=== PATIENT | female | born 1970 | race Caucasian/White ===

== ENCOUNTER → 2017-10-25 14:45 | Outpatient (CLI) | payer BC, SELFPAY ==
[2017-10-25 16:38] LABS: Calcium 9.7 mg/dL (8.4-10.2); Estimated Glomerular Filt Rate 58.9 mL/min (>60); Glucose 129 mg/dL (70-100); HEMOLYSIS < 15 (0-50); Potassium 3.8 mmol/L (3.4-5.1); Sodium 140 mmol/L (137-145)
== END ==
PROVIDERS: Family Provider Family Medicine; PCP Family Medicine; Visit Provider Family Medicine
DX: I10 Essential (primary) hypertension (principal)
CPT/HCPCS: 36415; 80048

== ENCOUNTER → 2019-01-10 07:37 | Outpatient (CLI) | payer BC, SELFPAY ==
[2019-01-10 08:37] LABS: Add Manual Diff / Slide Review NO; Basophils Absolute Auto 100 /uL (0-100); Eosinophils Absolute Auto 300 /uL (0-450); Eosinophils Percent Auto 3.9 % (2-4); Hematocrit 43.7 % (36-46); Hemoglobin 15.1 g/dL (12.0-16.0); Lymphocytes Absolute Auto 3200 /uL (1100-4500); Lymphocytes Percent Auto 37.9 % (25-40); Mean Corpuscular HGB Conc 34.6 % (30-36); Mean Corpuscular Hemoglobin 32.5 PG (26-34); Monocytes Absolute Auto 500 /uL (0-900); Monocytes Percent Auto 6.4 % (3-14); Neutrophils Absolute Auto 4300 /uL (1500-7000); Neutrophils Percent Auto 50.8 % (50-75); Platelet Count 376 X10^3/uL (150-400); Red Blood Cell Count 4.65 X10^6/uL (4.0-5.2); Red Cell Distribution Width 12.9 % (11.6-14.8); White Blood Cell Count 8.5 X10^3/uL (4.5-11.0)
[2019-01-10 08:52] LABS: Alanine Aminotransferase 24 IU/L (9-52); Albumin 4.4 g/dL (3.5-5.0); Albumin Globulin Ratio 1.6 (1.0-2.8); Alkaline Phosphatase 69 U/L (38-126); Aspartate Aminotransferase 20 IU/L (14-36); Bilirubin Total 0.4 mg/dL (0.2-1.3); Blood Urea Nitrogen 21 mg/dL (7-17); Calcium 9.7 mg/dL (8.4-10.2); Carbon Dioxide 29 mmol/L (22-32); Chloride 100 mmol/L (98-107); Cholesterol 257 mg/dL (140-199); Estimated Glomerular Filt Rate > 60.0 mL/min (>60); Globulin 2.8 g/dL (1.7-4.1); Glucose 98 mg/dL (70-100); HDL Cholesterol 51 mg/dL (40-60); HEMOLYSIS < 15 (0-50); LDL Cholesterol Calculated 177 mg/dL (<100); Potassium 4.2 mmol/L (3.4-5.1); Sodium 139 mmol/L (137-145); Total Protein 7.2 g/dL (6.3-8.2); Triglycerides 147 mg/dL (35-150)
[2019-01-10 09:07] LABS: Creatinine Urine Random 37.7 mg/dL
[2019-01-10 09:13] LABS: Microalbumi Creatinin Ratio Ur 15.9 ug/mg CR (<30); Microalbumin Urine Random < 0.6 mg/dL (0-1.6)
[2019-01-10 09:22] LABS: TSH w/ Reflex to FT4 0.81 uIU/mL (0.47-4.68)
== END ==
PROVIDERS: PCP Family Medicine; Visit Provider Family Medicine
DX: I10 Essential (primary) hypertension (principal); K85.20 Alcohol induced acute pancreatitis without necrosis or infection; D75.89 Other specified diseases of blood and blood-forming organs
CPT/HCPCS: 36415; 80053; 80061; 82043; 82570; 84443; 85025

== ENCOUNTER → 2019-02-14 07:42 | Outpatient (CLI) | payer BC, SELFPAY ==
[2019-02-14 09:01] LABS: Prolactin 6.4 ng/mL (3.0-18.6)
[2019-02-14 09:03] LABS: Progesterone, Total 0.81 ng/mL
[2019-02-16 17:42] LABS: Sex Hormone Binding Globulin 61 nmol/L (17-124)
[2019-02-20 21:01] LABS: Estradiol 4 pg/mL
== END ==
PROVIDERS: PCP Family Medicine; Visit Provider Family Medicine
DX: R68.82 Decreased libido (principal)
CPT/HCPCS: 36415; 82672; 84144; 84146; 84270; 84403

== ENCOUNTER 2019-02-27 12:36 | Emergency (ER) | payer BC, SELFPAY ==
[2019-02-27 12:52] VITALS: BP 147/101; PULSE 111; RESP 17; TEMP 37.2; O2SAT 97; BMI 29.2
--- NOTE | 2019-02-27 12:58 | DI.RAD.S_ITS ---
PROCEDURE: XR HIP W PEL IF DONE RT 2V INDICATIONS: right hip pain TECHNIQUE: AP pelvis with lateral view(s) of the right hip(s). COMPARISON: None. FINDINGS: Bones: Remote laminectomy and fusion at L5-S1. No fractures or dislocations. Pelvic ring appears intact. No suspicious bony lesions. Mild degenerative change of the right hip. Soft tissues: The visualized bowel gas pattern is normal. No suspicious soft tissue calcifications. IMPRESSION: Mild right hip degenerative change. Dictated by: Kaleb Fabian M.D. on 02/27/2019 at 13:33 Approved by: Kaleb Fabian M.D. on 02/27/2019 at 13:33
[2019-02-27] MEDS: KETOROLAC 60 MG/2 ML VIAL IM (13:28)
--- NOTE | 2019-02-27 14:15 | ED_ITS ---
HPI - Extremity Problem <MONTANA King - Last Filed: 02/27/19 14:24> General Chief complaint: Extremity Problem,Nontraumatic Stated complaint: right hip pain Time Seen by Provider: 02/27/19 12:49 Source: patient Mode of arrival: Wheelchair Limitations: no limitations History of Present Illness HPI Narrative: The patient is a 48-year-old female current smoker with history of asthma who presents with a chief complaint of right hip pain for the past 10 days. She denies any falls or trauma. She states is increasingly painful when she was walking for long time and moving and rotating her hip. She has tried marijuana in 200 mg of ibuprofen for the pain without relief. She denies any fevers nausea vomiting or diarrhea. She does have history of arthritis, but no known arthritis in her hip. She denies any bruises or rashes. She states that her hip hurts at the top of her leg in the front Related Data Home Medications Medication Instructions Recorded Confirmed albuterol sulfate [Proventil HFA] 2 inhalation INHALATION Q4-6H PRN 02/27/19 02/27/19 amlodipine 10 mg PO DAILY 02/27/19 02/27/19 bupropion HCl 150 mg PO BID 02/27/19 02/27/19 montelukast [Singulair] 10 mg PO DAILY 02/27/19 02/27/19 Previous Rx's Medication Instructions Recorded budesonide 1 mg/2 mL suspension 1 mg INHALATION BID #60 inhalation 01/02/19 for nebulization ipratropium-albuterol 0.5 mg-3 3 ml INHALATION Q8H #180 ml 01/02/19 mg(2.5 mg base)/3 mL nebulization soln lisinopril 20 1 tab PO DAILY #90 tab 01/02/19 mg-hydrochlorothiazide 12.5 mg tablet ketorolac 10 mg PO TID PRN #20 tab 02/27/19 Allergies Allergy/AdvReac Type Severity Reaction Status Date / Time propranolol Allergy Severe LUNG Verified 02/27/19 12:52 REACTION/ HOSPITALIZE PER PATIENT Penicillins Allergy Mild UNKNOWN Verified 02/27/19 12:52 pneumococcal vaccine Allergy Mild UNABLE TO Verified 02/27/19 12:52 MOVE ARM FOR 24 HOURS Review of Systems <MONTANA King - Last Filed: 02/27/19 14:24> Review of Systems Narrative: GENERAL: Denies chills, fatigue, malaise, fever, sweats. HEENT: Denies sinus pain, ear pain, sore throat, difficulty swallowing, dizziness. RESPIRATORY: Denies dyspnea, cough, wheezing, hemoptysis, sputum. CARDIOVASCULAR: Denies chest pain, palpitations, orthopnea, edema, GASTROINTESTINAL: Denies nausea, vomiting, abdominal pain, diarrhea, constipation, melena. : Denies dysuria, frequency, incontinence, hematuria, urinary retention. MUSCULOSKELETAL: See HPI SKIN: Denies rash, skin lesions, or other NEUROLOGIC: Denies weakness, headache, numbness, change in speech, confusion, seizures, incoordination. PSYCHIATRIC: No concerning psychosocial issues. 12 point review of systems is negative except for those stated above PFSH <MONTANA King - Last Filed: 02/27/19 14:24> Medical History Alcohol abuse (Chronic) Alcoholic hepatitis (Inactive) Alcoholic pancreatitis (Inactive) Chronic headaches (Chronic 2006) Head injury, unspecified (Inactive) Keratin cyst (Acute) Postconcussive syndrome (Chronic 2006) Right ankle sprain (Inactive) Talipes cavus (Inactive) Surgical History Status post hysterectomy (Resolved 2003) Family History Mother Heart disease Suicide Brother Suicide Father Parkinson's disease Social History Smoking Status: Current every day smoker Family History Mother Heart disease Suicide Brother Suicide Father Parkinson's disease Social History Smoking Status: Current every day smoker Exam <MONTANA King - Last Filed: 02/27/19 14:24> Narrative Exam Narrative: GENERAL: This is a well-nourished, well-developed patient no acute distress lying on stretcher HEAD: Atraumatic. Normocephalic. No temporal or scalp tenderness. EYES: Pupils equal round and reactive. Extraocular motions intact. No scleral icterus. No injection or drainage. ENT: Nose without bleeding, purulent drainage or septal hematoma. Throat without erythema, tonsillar hypertrophy or exudate. Uvula midline. Airway patent. NECK: Trachea midline. No JVD or lymphadenopathy. Supple, nontender, no meningeal signs. CARDIOVASCULAR: Regular rate and rhythm without murmurs, gallops, or rubs. RESPIRATORY: Breath sounds equal bilaterally. Diffuse expiratory wheezes bilaterally to auscultation. No rales or rhonchi. GASTROINTESTINAL: Abdomen soft, non-tender, nondistended. No hepato- splenomegaly, or palpable masses. No guarding. Active bowel sounds all 4 quadrants. EXTREMITIES: General pain to palpation right hip. Decreased range of motion rotation. Positive pedal pulses right foot. BACK: Nontender without deformity or crepitance. No flank tenderness. NEURO: AOx3. SKIN: No rash or erythema ecchymosis or rash noted on right hip. Initial Vital Signs Initial Vital Signs: Vital Signs Temperature 98.9 F 02/27/19 12:52 Pulse Rate 111 H 02/27/19 12:52 Respiratory Rate 17 02/27/19 12:52 Blood Pressure 147/101 H 02/27/19 12:52 Pulse Oximetry 97 02/27/19 12:52 <Rayna Moon DO - Last Filed: 03/02/19 07:10> Initial Vital Signs Initial Vital Signs: Vital Signs Temperature 98.9 F 02/27/19 12:52 Pulse Rate 111 H 02/27/19 12:52 Respiratory Rate 17 02/27/19 12:52 Blood Pressure 147/101 H 02/27/19 12:52 Pulse Oximetry 97 02/27/19 12:52 Course <MONTANA King - Last Filed: 02/27/19 14:24> Orders Ordered: Discontinued Medications Ketorolac Tromethamine (Toradol) 60 mg IM NOW ONE Stop: 02/27/19 13:03 Last Admin: 02/27/19 13:28 Dose: 60 mg Documented by: SCANAPO Vital Signs Vital signs: Vital Signs - 8 hr 02/27/19 12:52 Temperature 98.9 F Pulse Rate 111 H Respiratory Rate 17 Blood Pressure 147/101 H Pulse Oximetry 97 <Rayna Moon DO - Last Filed: 03/02/19 07:10> Orders Ordered: Discontinued Medications Ketorolac Tromethamine (Toradol) 60 mg IM NOW ONE Stop: 02/27/19 13:03 Last Admin: 02/27/19 13:28 Dose: 60 mg Documented by: SCANAPO Vital Signs Vital signs: Vital Signs - 8 hr 02/27/19 12:52 Temperature 98.9 F Pulse Rate 111 H Respiratory Rate 17 Blood Pressure 147/101 H Pulse Oximetry 97 [facility] - Extremity (Nontraumatic) <MONTANA King - Last Filed: 02/27/19 14:24> Imaging Data Hip x-ray: Radiologist's impression: [address] [address] XRay Report Signed Patient: Kena Patino [facility]#: [id number] : 1970Acct:[id number] Age/Sex: 48 / FDate of Service: 02/27/19 Loc: ED Accession Number: [id number] Procedure: XR hip w pel if done RT 2V Ordering Provider: Eliza Griffiths PROCEDURE: XR HIP W PEL IF DONE RT 2V INDICATIONS: right hip pain TECHNIQUE: AP pelvis with lateral view(s) of the right hip(s). COMPARISON: None. FINDINGS: Bones: Remote laminectomy and fusion at L5-S1. No fractures or dislocations. Pelvic ring appears intact. No suspicious bony lesions. Mild degenerative change of the right hip. Soft tissues: The visualized bowel gas pattern is normal. No suspicious soft tissue calcifications. IMPRESSION: Mild right hip degenerative change. Dictated by: Kaleb Fabian M.D. on 02/27/2019 at 13:33 Approved by: Kaleb Fabian M.D. on 02/27/2019 at 13:33 [facility] Narrative Medical decision making narrative: The patient is a 48-year-old female who presents with a chief complaint of right hip pain for the past 10 days without trauma. Who she has no acute findings on exam. She has been using marijuana 200 mg of ibuprofen at home for pain control. She was given an injection of Toradol in the ER for pain. She is neurovascularly intact. X-ray shows some degenerative changes, which correlates with her history of pain with increased activity. Discussed at length ice, rest, NSAIDs and Tylenol as needed and able. Discussed not combining Toradol with any other NSAIDs such as Aleve or Motrin. Encouraged PCP follow-up as well as come back to the ER for any acute concerns such as chest pain or shortness of breath Discharge Plan Departure Patient Disposition: Home Clinical Impression: Acute hip pain Qualifiers: Laterality: right Qualified Code(s): M25.551 - Pain in right hip Discharge Date/Time: 02/27/19 14:37 Instructions: Help for Hip Pain, DI for Hip Pain Activity Restrictions/Additional Instructions: Your hip x-ray shows some degenerative changes. Please use the prescription of Toradol. Please also use Tylenol. Do not combine the Toradol with any other NSAIDs such as Aleve or Motrin Please use ice and rest Please follow up with primary care provider. Please come back to the emergency department for any acute concerns such as chest pain, shortness of breath, concern of heart attack or stroke. Prescriptions: New ketorolac 10 mg tablet 10 mg PO TID PRN (Reason: pain) Qty: 20 RF: 0 No Action lisinopril-hydrochlorothiazide 20-12.5 mg tablet 1 tab PO DAILY Qty: 90 RF: 3 budesonide 1 mg/2 mL suspension for nebulization 1 mg INHALATION BID Qty: 60 RF: 5 ipratropium-albuterol 0.5 mg-3 mg(2.5 mg base)/3 mL solution for nebulization 3 ml INHALATION Q8H Qty: 180 RF: 5 amlodipine 10 mg tablet 10 mg PO DAILY RF: 0 montelukast [Singulair] 10 mg tablet 10 mg PO DAILY RF: 0 albuterol sulfate [Proventil HFA] 90 mcg/actuation HFA aerosol inhaler 2 inhalation Inhalation Q4-6H PRN (Reason: Shortness Of Breath) RF: 0 bupropion HCl 75 mg tablet 150 mg PO BID RF: 0 Referrals: Yennifer La DO [Primary Care Provider] -
[2019-02-27 14:37] VITALS: BP 111/82; PULSE 95; RESP 16; O2SAT 97
== END 2019-02-27 14:37 | disposition home or self-care (01) ==
PROVIDERS: Emergency Provider Nurse Practitioner Family; PCP Family Medicine
DX: M25.551 Pain in right hip (principal)
CPT/HCPCS: 73502; 96372; 99282; 99283; J1885

== ENCOUNTER → 2019-03-08 08:26 | Outpatient (CLI) | payer BC, SELFPAY ==
--- NOTE | 2019-03-08 08:28 | DI.MRI.S_ITS ---
PROCEDURE: MR HIP RT WO CON INDICATIONS: right groin pain, unable to walk TECHNIQUE: Noncontrast coronal T1 spin echo and STIR through the bony pelvis. Coronal and axial T2 fast spin echo with fat saturation, sagittal T1 spin echo, and oblique axial T2 fast spin echo with fat saturation through the hip. COMPARISON: [facility], CR, XR HIP W PEL IF DONE RT 2V, 02/27/2019, 12:58. FINDINGS: Image quality: Suboptimal due to lower lumbar spine hardware artifact. Bones and joints: No evidence of occult fracture. Mild right hip joint effusion. Tendons and ligaments: The gluteus medius and minimus tendons appear intact, without associated muscle atrophy. The nearby proximal iliotibial band also appears intact. The iliopsoas tendon appears intact, without adjacent bursal fluid collections or evidence for impingement syndrome. Mild hamstring origin thickening and intrasubstance signal change in keeping with low-grade tendinopathy, age unknown. The straight and reflected heads of the rectus femoris muscle origin appear intact, as well as the conjoint tendon. The ligamentum teres appears intact where visualized. Labrum and cartilage: Full-thickness signal change involving the base of the anterosuperior labrum, for example image 17 series 5 in keeping with labral tear. The alpha angle of the femur is within normal limits at less than 55 degrees. Soft tissues: Visualized muscles demonstrate normal bulk and internal signal. Quadratus femoris muscle demonstrates no internal edema to suggest ischiofemoral impingement. The proximal sciatic neurovascular bundle appears normal adjacent to the hamstring tendons. No free pelvic fluid. Bladder wall thickness is normal. Genitourinary structures and bowel loops appear normal where visualized. Colonic diverticulosis incidentally noted IMPRESSION: No evidence of occult fracture identified. Anterosuperior labral tear. Low-grade hamstring origin tendinopathy. Mild right hip joint effusion Dictated by: Allen Gan M.D. on 03/08/2019 at 9:56 Approved by: Allen Gan M.D. on 03/08/2019 at 10:13
== END ==
PROVIDERS: PCP Family Medicine; Visit Provider Family Medicine
DX: M25.559 Pain in unspecified hip (principal); S73.191A Other sprain of right hip, initial encounter; R10.30 Lower abdominal pain, unspecified; M25.451 Effusion, right hip; K57.90 Diverticulosis of intestine, part unspecified, without perforation or abscess without bleeding; R26.2 Difficulty in walking, not elsewhere classified
CPT/HCPCS: 73721

== ENCOUNTER 2022-04-06 07:19 | Emergency (ER) | payer OTHER, SELFPAY ==
[2022-04-06 08:00] VITALS: BP 179/110; PULSE 108; RESP 17; TEMP 36.9; O2SAT 97; BMI 28.8
--- NOTE | 2022-04-06 08:14 | DI.RAD.S_ITS ---
PROCEDURE: XR HIP W PEL IF DONE LT 2V INDICATIONS: fall monday, cant bear weight TECHNIQUE: AP pelvis with lateral view(s) of the left hip(s). COMPARISON: None. FINDINGS: Bones: No fractures or dislocations. Mild symmetric appearing bilateral hip joint osteoarthritic changes are seen with joint space narrowing and subchondral sclerosis. No evidence of avascular necrosis of femoral head. Pelvic ring appears intact. No suspicious bony lesions. Post fusion changes are seen in visualized lower lumbar spine. Soft tissues: The visualized bowel gas pattern is normal. No suspicious soft tissue calcifications. IMPRESSION: No acute left hip fracture or dislocation. Bilateral hip joint osteoarthritis. No evidence of avascular necrosis. Dictated by: Wallace Gomez M.D. on 04/06/2022 at 8:55 Approved by: Wallace Gomez M.D. on 04/06/2022 at 8:56
--- NOTE | 2022-04-06 09:18 | ED_ITS ---
HPI - Extremity Injury (Lower) General Chief Complaint: Extremity Injury, Lower Stated Complaint: left hip pain Time Seen by Provider: 04/06/22 08:51 Source: patient Mode of arrival: Ambulatory Limitations: no limitations History of Present Illness HPI Narrative: Patient presents with severe left groin pain. She fell at home 2 days ago walking up steps. She fell forward onto her knees. There was no head, neck, back or torso injury. She has increased left groin pain since the fall. She arrives on crutches. She is ambulatory with crutches, there is no numbness or weakness to the left leg. There is no malrotation to the left leg. She has a prior history of right hip labrum tear that responded to a cortisone injection. She says the pain feels about the same. Pain is on the right inner leg. She is no back pain. She is no incontinence. She is no lower extremity numbness or weakness. Related Data Previous Rx's Medication Instructions Recorded ipratropium 0.5 mg-albuterol 3 mg 3 ml inhalation Q6H PRN shortness 08/02/21 (2.5 mg base)/3 mL nebulization of breath #360 mL soln lisinopril 20 1 tab PO DAILY #90 tabs 08/17/21 mg-hydrochlorothiazide 12.5 mg tablet budesonide 1 mg/2 mL suspension 1 mg (2 mL) inhalation BID #120 08/20/21 for nebulization inhalations azithromycin 250 mg tablet See Rx Instructions PO .COMPLEX #6 11/15/21 tabs prednisone 20 mg tablet 20 mg PO DAILY as needed for 11/15/21 asthma flare #7 tabs albuterol sulfate 90 mcg/actuation See Rx Instructions .Route 12/13/21 aerosol inhaler .COMPLEX #17 grams amlodipine 10 mg tablet 10 mg PO DAILY #90 tabs 03/01/22 methocarbamol 750 mg tablet 750 mg PO TID PRN back spasms #20 03/01/22 tabs montelukast 10 mg tablet 10 mg PO DAILY #90 tabs 03/01/22 hydrocodone 5 mg-acetaminophen 325 1 tab PO Q4-6H PRN pain #14 tabs 04/06/22 mg tablet methocarbamol 750 mg tablet 750 mg PO Q6H PRN spasms #40 tabs 04/06/22 Allergies Allergy/AdvReac Type Severity Reaction Status Date / Time propranolol Allergy Severe LUNG Verified 03/01/22 08:09 REACTION/ HOSPITALIZE PER PATIENT Penicillins Allergy Mild UNKNOWN Verified 03/01/22 08:09 pneumococcal vaccine Allergy Mild UNABLE TO Verified 03/01/22 08:09 MOVE ARM FOR 24 HOURS Review of Systems Review of Systems ROS Unobtainable: All systems reviewed & are unremarkable except as noted in HPI and below Patient History Medical History (Updated 04/06/22 @ 09:26 by Palomo Toro MD) Alcohol abuse Alcoholic hepatitis Alcoholic pancreatitis Chronic headaches (2006) Head injury, unspecified Keratin cyst Postconcussive syndrome (2006) Right ankle sprain Talipes cavus Surgical History Status post hysterectomy (2003) Family History Mother Heart disease Suicide Brother Suicide Father Parkinson's disease Social History Smoking Status: Current every day smoker quit status: has quit before Smoking Status: Current every day smoker alcohol intake frequency: a few times a week Substance Use Type: does not use Exam Initial Vital Signs Initial Vital Signs: Vital Signs Temperature 98.5 F 04/06/22 08:00 Pulse Rate 108 H 04/06/22 08:00 Respiratory Rate 17 04/06/22 08:00 Blood Pressure 179/110 H 04/06/22 08:00 Pulse Oximetry 97 04/06/22 08:00 Oxygen Delivery Method 04/06/22 08:00 Const General: cooperative, healthy appearing and other (Uncomfortable with motion.) Nutritional Appearance: average body habitus [facility] Head: normal to inspection, normocephalic and atraumatic GI Inspection: normal to inspection Palpation: soft and No tender Back/Spine/Pelvis Back: normal to inspection and No back tenderness Sacroiliac Joints: nontender Skin General: no rashes or lesions noted Neuro General: patient alert, patient awake, patient oriented x3, no focal motor deficits and other (No lower extremity sensory deficits.) Extrem Other: Tenderness in the left inner groin. Minimal discomfort over the femoral head. No palpable deformity or malrotation. Decreased range of motion to to right inner groin pain. Tenderness, but no palpable deformity at the site. Left knee, calf and ankle/foot are atraumatic/nontender. Psych Appearance: grossly normal Course Course Course Narrative: Left hip x-ray reveals no bony injury. Patient is given Toradol IM. She will be discharged on ibuprofen, hydrocodone, and Robaxin. Physical therapy is recommended. Orders Ordered: ED Orders 04/06/22 08:14 XR hip w pel if done LT 2V Stat Vital Signs Vital signs: Vital Signs - 8 hr 04/06/22 08:00 Temperature 98.5 F Pulse Rate 108 H Respiratory Rate 17 Blood Pressure 179/110 H Pulse Oximetry 97 Oxygen Delivery Method Room Air MDM - Extremity Injury (Lower) Imaging Data Left hip x-ray:: Radiologist's Impression: No acute bony injury Discharge Plan Departure Patient Disposition: Home Clinical Impression: Strain of left groin Instructions: Groin Strain Activity Restrictions/Additional Instructions: Advil 2 tablets every 6 hours as needed for pain. Robaxin every 6 hours for muscle spasm. Take the Advil and Robaxin together. Oxycodone every 4 hours for added pain control. Contact your new provider. I would suggest physical therapy. Prescriptions: New hydrocodone-acetaminophen 5-325 mg tablet 1 tab PO Q4-6H PRN (Reason: pain) Qty: 14 0RF methocarbamol 750 mg tablet 750 mg PO Q6H PRN (Reason: spasms) Qty: 40 0RF No Action methocarbamol 750 mg tablet 750 mg PO TID PRN (Reason: back spasms) Qty: 20 0RF ipratropium-albuterol 0.5 mg-3 mg(2.5 mg base)/3 mL solution for nebulization 3 ml INHALATION Q6H PRN (Reason: shortness of breath) Qty: 360 5RF lisinopril-hydrochlorothiazide 20-12.5 mg tablet 1 tab PO DAILY Qty: 90 3RF budesonide 1 mg/2 mL suspension for nebulization 1 mg INHALATION BID Qty: 120 5RF Hold Instructions: using budesonide/formoterol albuterol sulfate 90 mcg/actuation HFA aerosol inhaler See Rx Instructions .ROUTE .COMPLEX Qty: 17 3RF Dose Instruction: inhale 2 puffs by mouth and INTO THE LUNGS every 4 to 6 hours if needed for shortness of breath Rx Instructions: inhale 2 puffs by mouth and INTO THE LUNGS every 4 to 6 hours if needed for shortness of breath montelukast 10 mg tablet 10 mg PO DAILY Qty: 90 0RF amlodipine 10 mg tablet 10 mg PO DAILY Qty: 90 0RF prednisone 20 mg tablet 20 mg PO DAILY Qty: 7 0RF azithromycin 250 mg tablet See Rx Instructions PO .COMPLEX Qty: 6 0RF Rx Instructions: For 250 mg dose pack: take 500 mg today (day 1), then 250 mg for 4 days (days 2-5) PO Referrals: Yennifer La DO [Primary Care Provider] - Stand Alone Forms: Work Release Note
[2022-04-06] MEDS: KETOROLAC 30 MG/ML VIAL IM (09:36)
[2022-04-06 09:37] VITALS: BP 198/100; PULSE 85; RESP 18; O2SAT 98
== END 2022-04-06 09:39 | disposition home or self-care (01) ==
PROVIDERS: Emergency Provider Emergency Medicine; PCP Family Medicine
DX: S39.011A Strain of muscle, fascia and tendon of abdomen, initial encounter (principal); W10.9XXA Fall (on) (from) unspecified stairs and steps, initial encounter
CPT/HCPCS: 73502; 96372; 99283; J1885

== ENCOUNTER → 2022-10-05 11:56 | Outpatient (CLI) | payer OTHER, SELFPAY ==
--- NOTE | 2022-10-05 11:59 | DI.RAD.S_ITS ---
PROCEDURE: XR CERVICAL SPINE 4V OR 5V INDICATIONS: NECK PAIN/LEFT ARM PAIN TECHNIQUE: 5 views of the cervical spine were acquired. COMPARISON: None. FINDINGS: Bones: No fractures or dislocations to the T1 level. No suspicious bony lesions. There is reversal the normal cervical lordosis. Normal craniovertebral relationships. Disc space narrowing hypertrophic facet joints in the mid cervical spine present. Bilateral moderate foraminal stenosis present at C4-5 and C5-6. Soft tissues: Prevertebral soft tissues are normal in thickness. IMPRESSION: Degenerative disc disease and arthropathy results in moderate bilateral foraminal stenosis in the mid cervical spine Approved by: Abdulaziz Leigh M.D. on 10/05/2022 at 17:35
== END ==
PROVIDERS: PCP Family Medicine; Referring Provider Anesthesiology; Visit Provider Anesthesiology
DX: M47.812 Spondylosis without myelopathy or radiculopathy, cervical region (principal); M50.30 Other cervical disc degeneration, unspecified cervical region; M48.02 Spinal stenosis, cervical region; M79.602 Pain in left arm
CPT/HCPCS: 72050

== ENCOUNTER → 2022-11-03 11:59 | Outpatient (CLI) | payer OTHER, SELFPAY ==
--- NOTE | 2022-11-03 12:01 | DI.MRI.S_ITS ---
PROCEDURE: MR CERVICAL SPINE WO CON INDICATIONS: Left cervical radiculopathy TECHNIQUE: Noncontrast sagittal T1 spin echo and T2 fast spin echo, sagittal STIR, foraminal oblique sagittal T2 fast spin echo, and axial gradient echo or T2 fast spin echo through the cervical spine. COMPARISON: None. FINDINGS: Image quality: Excellent. Alignment and Curvature: Mild straightening the normal cervical lordosis. Craniovertebral relationships normal. Bone Marrow: Marrow demonstrates normal overall signal. Spinal Cord: Visualized spinal cord has normal size and signal. No cerebellar tonsillar herniation. Paraspinous Soft Tissues: No paravertebral masses. Prevertebral soft tissues are normal in thickness. C2-C3: Normal appearance. C3-C4: Disc space is preserved. Hypertrophic facet joints. Mild central stenosis. No foraminal stenosis. C4-C5: Disc space narrowing posterior disc osteophyte complex and hypertrophic uncovertebral joints. Mild to moderate central stenosis. Moderate to severe right and moderate left foraminal stenosis C5-C6: Disc space narrowing and posterior disc osteophyte complex associated with hypertrophic uncovertebral joints results in moderate central stenosis with flattening the ventral surface of the cord. Severe left and moderate right foraminal stenosis. C6-C7: Disc space narrowing posterior disc osteophyte complex results in mild central stenosis. Hypertrophic uncovertebral joints present. Moderate left and severe right foraminal stenosis. C7-T1: Normal appearance. IMPRESSION: Multilevel degenerative disc disease and arthropathy results in varying degrees of central and foraminal stenosis including moderate central stenosis and severe left foraminal stenosis at C5-6 Approved by: Abdulaziz Leigh M.D. on 11/03/2022 at 20:18
== END ==
PROVIDERS: PCP Family Medicine; Referring Provider Anesthesiology; Visit Provider Anesthesiology
DX: M54.12 Radiculopathy, cervical region (principal); M79.602 Pain in left arm; M48.02 Spinal stenosis, cervical region; M50.321 Other cervical disc degeneration at C4-C5 level; M47.812 Spondylosis without myelopathy or radiculopathy, cervical region
CPT/HCPCS: 72141

== ENCOUNTER → 2023-03-24 10:02 | Outpatient (CLI) | payer OTHER, SELFPAY ==
[2023-03-24 10:37] LABS: Add Manual Diff / Slide Review NO; Basophils Absolute Auto 100 /uL (0-100); Basophils Percent Auto 0.7 % (0-2); Eosinophils Absolute Auto 100 /uL (0-450); Eosinophils Percent Auto 0.6 % (2-4); Hematocrit 45.9 % (36-46); Hemoglobin 15.8 g/dL (12.0-16.0); Lymphocytes Absolute Auto 2700 /uL (1100-4500); Lymphocytes Percent Auto 26.9 % (25-40); Mean Corpuscular HGB Conc 34.4 % (30-36); Mean Corpuscular Hemoglobin 34.6 PG (26-34); Mean Corpuscular Volume 100.4 fL (80-100); Monocytes Absolute Auto 800 /uL (0-900); Monocytes Percent Auto 7.8 % (3-14); Neutrophils Absolute Auto 6500 /uL (1500-7000); Platelet Count 380 X10^3/uL (150-400); Red Blood Cell Count 4.57 X10^6/uL (4.0-5.2); Red Cell Distribution Width 12.4 % (11.6-14.8); White Blood Cell Count 10.2 X10^3/uL (4.5-11.0)
[2023-03-24 11:00] LABS: Alanine Aminotransferase 32 IU/L (<35); Albumin 4.5 g/dL (3.5-5.0); Albumin Globulin Ratio 1.5 (1.0-2.8); Alkaline Phosphatase 79 U/L (38-126); Aspartate Aminotransferase 36 IU/L (14-36); BUN Creatinine Ratio 26.2 (6-22); Bilirubin Total 0.5 mg/dL (0.2-1.3); Blood Urea Nitrogen 16 mg/dL (7-17); Calcium 9.7 mg/dL (8.4-10.2); Carbon Dioxide 26 mmol/L (22-32); Chloride 97 mmol/L (98-107); Cholesterol 267 mg/dL (140-199); Estimated Glomerular Filt Rate > 60 mL/min (>60); Globulin 3.1 g/dL (1.7-4.1); Glucose 105 mg/dL (70-100); HDL Cholesterol 67 mg/dL (40-60); HEMOLYSIS 16 (0-50); LDL Cholesterol Calculated 162 mg/dL (<100); Potassium 3.5 mmol/L (3.4-5.1); Sodium 134 mmol/L (137-145); Total Protein 7.6 g/dL (6.3-8.2); Triglycerides 192 mg/dL (35-150)
[2023-03-24 11:03] LABS: High Sensitivity CRP - Cardiac 2.1 mg/L (1.0-3.0)
[2023-03-24 11:04] LABS: Creatinine Urine Random 57.9 mg/dL
[2023-03-24 11:17] LABS: Microalbumin Urine Random < 0.6 mg/dL (0-1.6)
== END ==
PROVIDERS: PCP Family Medicine; Referring Provider Family Medicine; Visit Provider Family Medicine
DX: J40 Bronchitis, not specified as acute or chronic (principal); Z72.0 Tobacco use; D75.89 Other specified diseases of blood and blood-forming organs; I10 Essential (primary) hypertension; E87.6 Hypokalemia
CPT/HCPCS: 36415; 80053; 80061; 82043; 82570; 85025; 86140

== ENCOUNTER → 2023-04-07 08:04 | Outpatient (CLI) | payer OTHER, SELFPAY | PROVIDERS: PCP Family Medicine; Referring Provider Family Medicine; Visit Provider Family Medicine | DX: J45.901 Unspecified asthma with (acute) exacerbation (principal); F17.210 Nicotine dependence, cigarettes, uncomplicated | CPT/HCPCS: 94060; 94726; 94729 ==

== ENCOUNTER → 2023-05-04 09:56 | Outpatient (CLI) | payer OTHER, SELFPAY | PROVIDERS: PCP Family Medicine; Referring Provider Family Medicine; Visit Provider Family Medicine | DX: J44.9 Chronic obstructive pulmonary disease, unspecified (principal); R00.0 Tachycardia, unspecified | CPT/HCPCS: 93005 ==

== ENCOUNTER → 2023-05-09 14:38 | Outpatient (CLI) | payer OTHER, SELFPAY ==
[2023-05-09 17:36] LABS: Influenza A - CEPHEID Flu A NEGATIVE (NEGATIVE); Influenza B - CEPHEID Flu B NEGATIVE (NEGATIVE); Respiratory Syncytial Virus Negative (Negative)
[2023-05-09 17:43] LABS: COVID-19 CEPHEID 4-PLEX PCR Negative (Negative)
== END ==
PROVIDERS: PCP Family Medicine; Visit Provider Family Medicine
DX: R05.9 Cough, unspecified (principal)
CPT/HCPCS: 0241U

== ENCOUNTER → 2023-07-21 07:54 | Outpatient (CLI) | payer OTHER, SELFPAY ==
--- NOTE | 2023-07-21 08:00 | DI.US.S_ITS ---
PROCEDURE: US PERIPH VENOUS LOW EXTREM LT INDICATIONS: Left thigh pain without trauma TECHNIQUE: Real-time imaging, as well as color and pulse Doppler interrogation, were performed of the lower extremity deep veins from the inguinal ligament to the popliteal fossa, with documentation of the visualized calf veins. COMPARISON: None. FINDINGS: The common femoral, femoral, popliteal, and the visualized calf veins are normally compressible, and free of intraluminal thrombus. Color and pulse Doppler demonstrate normal phasic intraluminal flow. There is normal augmentation response to distal compression maneuver. IMPRESSION: No findings of lower extremity deep venous thrombosis. Dictated by: Higinio Lopes M.D. on 07/21/2023 at 8:40 Approved by: Higinio Lopes M.D. on 07/21/2023 at 8:40
== END ==
PROVIDERS: PCP Family Medicine; Referring Provider Physician Assistant; Visit Provider Physician Assistant
DX: M79.605 Pain in left leg (principal)
CPT/HCPCS: 93971

== ENCOUNTER → 2023-08-08 11:12 | Outpatient (CLI) | payer OTHER, SELFPAY ==
--- NOTE | 2023-08-08 11:14 | DI.RAD.S_ITS ---
PROCEDURE: XR HIP W PEL IF DONE KRIS MIN 4V INDICATIONS: Left hip pain; hx of labral tear R hip TECHNIQUE: AP pelvis with lateral view(s) of the both hip(s). COMPARISON: [facility], CR, XR HIP W PEL IF DONE LT 2V, 04/06/2022, 8:32. [facility], CR, XR HIP W PEL IF DONE RT 2V, 02/27/2019, 12:58. FINDINGS: Bones: No fractures or dislocations. Pelvic ring appears intact. Mild bilateral hip joint space narrowing. No suspicious bony lesions. Lower spine fixation hardware. Soft tissues: The visualized bowel gas pattern is normal. No suspicious soft tissue calcifications. IMPRESSION: Mild bilateral hip DJD. Not significantly changed. Dictated by: Ozzie Tineo M.D. on 08/08/2023 at 14:13 Approved by: Ozzie Tineo M.D. on 08/08/2023 at 14:16
--- NOTE | 2023-08-08 11:14 | DI.RAD.S_ITS ---
PROCEDURE: XR KNEE LT 3V INDICATIONS: Left knee pain; instability; possible osteoarthritis TECHNIQUE: 3 views of the knee were acquired. COMPARISON: [facility], , KNEE 3V LEFT, 02/01/2008, 11:59. FINDINGS: Bones: No fractures or dislocations. No suspicious bony lesions. Soft tissues: No joint effusion. No suspicious soft tissue calcifications. IMPRESSION: No significant osseous abnormality identified. If clinically indicated MRI could be considered for further evaluation. Dictated by: Ozzie Tineo M.D. on 08/08/2023 at 14:16 Approved by: Ozzie Tineo M.D. on 08/08/2023 at 14:22
== END ==
LOC: RAD 11:13
PROVIDERS: PCP Family Medicine; Referring Provider Physician Assistant; Visit Provider Physician Assistant
DX: M16.0 Bilateral primary osteoarthritis of hip (principal); M25.552 Pain in left hip; M25.562 Pain in left knee
CPT/HCPCS: 73522; 73562

== ENCOUNTER → 2023-10-01 10:09 | Outpatient (CLI) | payer OTHER, SELFPAY ==
--- NOTE | 2023-10-01 10:09 | DI.MRI.S_ITS ---
PROCEDURE: MR HIP LT WO CON INDICATIONS: Acute abrupt onset hip pain, unable to bear weight TECHNIQUE: Noncontrast coronal T1 spin echo and STIR through the bony pelvis. Coronal and axial T2 fast spin echo with fat saturation, sagittal T1 spin echo, and oblique axial T2 fast spin echo with fat saturation through the hip. COMPARISON: [facility], CR, XR HIP W PEL IF DONE KRIS 3TO4V, 08/08/2023, 11:22. [facility], MR, MR HIP RT WO CON, 03/08/2019, 9:22. FINDINGS: Image quality: Excellent. Bones and joints: Bone marrow of the pelvic ring and proximal femurs show normal signal throughout. No intraosseous lesions or fractures. No avascular necrosis of the femoral head. Postsurgical changes at the lower lumbar spine result in extensive metal artifact that obscures the surrounding area. Tendons and ligaments: The gluteus medius and minimus tendons demonstrate mild tendinosis distally. The proximal iliotibial band appears intact. The iliopsoas tendon appears intact, without adjacent bursal fluid collections. The origin of the hamstring tendon is intact at the ischial tuberosity. The tendons for the direct and indirect heads of the rectus femoris muscle appear intact. Labrum and cartilage: There is full-thickness cartilage loss in the superior aspect of the left hip with subchondral edema as well as marginal osteophyte formation. There is diffuse labral degeneration and degenerative tearing. A moderate left hip effusion is seen. There is normal morphology of the femoral head and acetabulum. Soft tissues: An intramuscular lipoma is incidentally noted in the left gluteus juanjo muscle measuring approximately 6.7 x 1.8 x 2.3 cm. Visualized muscles demonstrate normal bulk and internal signal. Quadratus femoris muscle demonstrates no internal edema to suggest ischiofemoral impingement. The proximal sciatic neurovascular bundle appears normal adjacent to the hamstring tendons. Pelvic soft tissues demonstrate no acute abnormality. IMPRESSION: 1. Full-thickness cartilage loss in the superior aspect of the left hip with moderate subchondral edema and small marginal osteophytes. Moderate left hip effusion. 2. Diffuse labral degeneration and chronic degenerative tearing. 3. Mild distal left gluteus medius and minimus tendinosis. 4. Degenerative changes are seen in the contralateral right hip. Postsurgical changes are noted in the included spine. 5. Incidental benign intramuscular lipoma in the left gluteus juanjo muscle. Approved by: Aris Fatima M.D. on 10/02/2023 at 13:21
== END ==
PROVIDERS: PCP Family Medicine; Referring Provider Family Medicine; Visit Provider Family Medicine
DX: M24.152 Other articular cartilage disorders, left hip (principal); S73.192A Other sprain of left hip, initial encounter; M25.452 Effusion, left hip; D17.9 Benign lipomatous neoplasm, unspecified; M25.562 Pain in left knee
CPT/HCPCS: 73721

== ENCOUNTER → 2024-01-12 11:02 | Outpatient (CLI) | payer OTHER, SELFPAY ==
--- NOTE | 2024-01-12 11:03 | DI.MG.S_ITS ---
BILATERAL DIGITAL SCREENING MAMMOGRAM 3D/2D WITH CAD: 01/12/2024 CLINICAL: Routine screening. Comparison is made to exam dated: 12/15/2016 mammogram - [facility]. Both breasts are heterogeneously dense, which may obscure small masses (category c / 51-75% glandular tissue). Current study was also evaluated with a Computer Aided Detection (CAD) system. There is a possible irregular focal asymmetry in the right breast at 2 o'clock middle depth. There is architectural distortion associated with the focal asymmetry. No other significant masses, calcifications, or other findings are seen in either breast. IMPRESSION: INCOMPLETE: NEEDS ADDITIONAL IMAGING EVALUATION The possible irregular focal asymmetry in the right breast is indeterminate. Additional views with possible ultrasound are recommended. Based on the Tyrer Cuzick model (a risk assessment model) the patient's lifetime risk is 9.5% and her 10 year risk is 2.9%. According to the ACR, ACS, and NCCN guidelines, an annual breast MRI exam along with mammogram is recommended if the patient's lifetime risk is 20% or greater. This exam was interpreted at Station ID: [id number]. NOTE: For mammograms, a report in lay terms will be sent to the patient. Approximately 15% of breast malignancies will not be visualized mammographically. In the management of a palpable breast mass, a negative mammogram must not discourage biopsy of a clinically suspicious lesion. Electronically Signed By: Aris alex/stevie:01/12/2024 14:03:12 letter sent: Additional Imaging Needed ACR BI-RADS Category 0: Incomplete 3340F
== END ==
PROVIDERS: PCP Family Medicine; Referring Provider Family Medicine; Visit Provider Family Medicine
DX: Z12.31 Encounter for screening mammogram for malignant neoplasm of breast (principal); R92.333 Mammographic heterogeneous density, bilateral breasts
CPT/HCPCS: 77063; 77067

== ENCOUNTER → 2024-01-24 11:49 | Outpatient (CLI) | payer OTHER, SELFPAY ==
--- NOTE | 2024-01-24 11:50 | DI.MG.S_ITS ---
UNILATERAL RIGHT DIGITAL DIAGNOSTIC MAMMOGRAM 3D/2D WITH ADDITIONAL VIEWS: 01/24/2024 CLINICAL: Additional evaluation requested from prior study. Comparison is made to exams dated: 01/12/2024 mammogram, 12/15/2016 mammogram, and 09/06/2012 mammogram - [facility]. The right breast is heterogeneously dense, which may obscure small masses (category c / 51-75% glandular tissue). There is a 0.8 cm irregular mass with a spiculated margin in the right breast at 2 o'clock middle depth. This corresponds to finding seen on recent screening mammogram. No other significant masses or calcifications are seen in the breast. IMPRESSION: INCOMPLETE: NEEDS ADDITIONAL IMAGING EVALUATION The 0.8 cm irregular mass in the right breast is indeterminate. An ultrasound is recommended for further evaluation and is scheduled to immediately follow this examination. Based on the Tyrer Cuzick model (a risk assessment model) the patient's lifetime risk is 9.5% and her 10 year risk is 2.9%. According to the ACR, ACS, and NCCN guidelines, an annual breast MRI exam along with mammogram is recommended if the patient's lifetime risk is 20% or greater. This exam was interpreted at Station ID: [id number]. NOTE: For mammograms, a report in lay terms will be sent to the patient. Approximately 15% of breast malignancies will not be visualized mammographically. In the management of a palpable breast mass, a negative mammogram must not discourage biopsy of a clinically suspicious lesion. Electronically Signed By: Joaquina Schmitt M.D., Ph.D. eb/:01/24/2024 13:49:10 ACR BI-RADS Category 0: Incomplete 3340F
--- NOTE | 2024-01-24 11:50 | DI.US.S_ITS ---
LIMITED ULTRASOUND OF RIGHT BREAST: 01/24/2024 CLINICAL: Patient returns today to evaluate a focal asymmetry in the right breast. Comparison is made to exams dated: 01/24/2024 mammogram, 01/12/2024 mammogram, 12/15/2016 ultrasound, 12/15/2016 mammogram, 09/06/2012 mammogram, and 09/06/[address] [facility]. Color flow and real-time ultrasound of the right breast 2 o'clock region were performed. There is a 0.7 cm x 0.5 cm x 0.3 cm irregular mass with a spiculated margin in the right breast at 2 o'clock, 5 cm from the nipple. This irregular mass is hypoechoic. This correlates with mammography findings. There is an incidental benign simple cyst at 2 o'clock, 4 cm from the nipple measuring 3 mm. There are two lymph nodes in the right axilla which demonstrate mildly eccentric thickened cortex. Normal reniform shape and fatty hilum are maintained. IMPRESSION: HIGHLY SUGGESTIVE OF MALIGNANCY Right breast 0.7 cm spiculated mass at 2 o'clock, 5 cm from the nipple. Finding is highly suspicious. Recommend ultrasound-guided core biopsy. Two right axillary lymph nodes with mildly eccentrically thickened cortex. Finding is at moderate suspicion. Recommend ultrasound-guided core biopsy. Findings and recommendations were discussed with the patient by Dr. Galarza during today's examination. This exam was interpreted at Station ID: [id number]. Electronically Signed By: Joaquina Schmitt M.D., Ph.D. eb/:01/24/2024 14:01:00 Entry: - 01/24/2024 16:47:01 letter sent: Biopsy Required Ultrasound BI-RADS: 5 Highly suggestive of malignancy
== END ==
LOC: MAMMO 11:49
PROVIDERS: PCP Family Medicine; Referring Provider Family Medicine; Visit Provider Family Medicine
DX: R92.8 Other abnormal and inconclusive findings on diagnostic imaging of breast (principal); N63.12 Unspecified lump in the right breast, upper inner quadrant; N64.89 Other specified disorders of breast; R92.331 Mammographic heterogeneous density, right breast
CPT/HCPCS: 76642; 77065; G0279

== ENCOUNTER → 2024-01-31 12:11 | Outpatient (CLI) | payer OTHER, SELFPAY ==
--- NOTE | 2024-01-31 | DI.US.S_ITS ---
ULTRASOUND GUIDED BIOPSY RIGHT BREAST WITH MARKING DEVICE INSERTED AND POST MAMMOGRAPHIC IMAGIN01/31/2024 CLINICAL: Right axillary node biopsy. PATIENT CONSENT: Risks (minor bleeding, infection, vasovagal reaction and repeat procedure), benefits and alternatives were explained to the patient and written informed consent was obtained. Correlation is made to exams dated: 01/31/2024 ultrasound biopsy, 01/31/2024 mammogram, 01/24/2024 ultrasound, 01/24/2024 mammogram, 01/12/2024 mammogram, and 12/15/2016 [facility]. An ultrasound guided biopsy using real-time ultrasound was performed for the lobulated lymph node located in the right axillary tail. This was described on the previous ultrasound report. The skin was prepped in the usual manner. The abnormality was approached at 7 o'clock. An 18 gauge biopsy needle was placed adjacent to the abnormality under ultrasound guidance. Once the needle was documented to be in the correct location, four specimens were obtained using the I3 Precisionno biopsy device. The patient received additional local anesthetic during the procedure. A Celero clip was inserted into the biopsy cavity. A sterile dressing was applied to the access site. Post procedure mammographic imaging demonstrates the location device at the targeted area. The specimens were sent to the laboratory for pathological analysis. IMPRESSION: ULTRASOUND GUIDED BIOPSY BENIGN Ultrasound guided biopsy of the lymph node in the right axillary tail was successful. Pathology indicates benign lymph node (LN). Pathology results are concordant with imaging findings. Recommend surgical and oncological consultation and follow up for ipsilateral biopsy proven malignancy. This exam was interpreted at Station ID: [id number]. Juan Jose Schmitt M.D., Ph.D. kirstie/:02/09/2024 14:18:44
--- NOTE | 2024-01-31 | DI.MG.S_ITS ---
UNILATERAL RIGHT DIGITAL DIAGNOSTIC MAMMOGRAM - RIGHT BREAST POST-PROCEDURE IMAGING FOR MARKER PLACEMENT: 01/31/2024 CLINICAL: Post right breast ultrasound biopsy, clip placment imaging. Comparison is made to exams dated: 01/24/2024 mammogram, 01/12/2024 mammogram, and 12/15/2016 mammogram - [facility]. The right breast is heterogeneously dense, which may obscure small masses (category c / 51-75% glandular tissue). There is a marker clip in the appropriate position in the right breast at 2 o'clock middle depth. This marker clip placement is at the biopsy site. This correlates with ultrasound findings and the biopsy. There also is a marker clip in the appropriate position in the right axilla. This marker clip placement is at the biopsy site. This correlates with ultrasound findings and the biopsy. IMPRESSION: POST PROCEDURE MAMMOGRAM FOR MARKER PLACEMENT There was a successful marker clip placement in the right breast at 2 o'clock middle depth. There was a successful marker clip placement in the right axilla. Based on the Tyrer Cuzick model (a risk assessment model) the patient's lifetime risk is 9.5% and her 10 year risk is 2.9%. According to the ACR, ACS, and NCCN guidelines, an annual breast MRI exam along with mammogram is recommended if the patient's lifetime risk is 20% or greater. This exam was interpreted at Station ID: [id number]. NOTE: For mammograms, a report in lay terms will be sent to the patient. Approximately 15% of breast malignancies will not be visualized mammographically. In the management of a palpable breast mass, a negative mammogram must not discourage biopsy of a clinically suspicious lesion. Electronically Signed By: Juan Jose Rodriguez M.D. aty/:01/31/2024 20:00:02 ACR BI-RADS Category Post-procedure mammogram for marker placement
--- NOTE | 2024-01-31 12:12 | DI.US.S_ITS ---
ULTRASOUND GUIDED BIOPSY RIGHT BREAST WITH MARKING DEVICE INSERTED AND POST MAMMOGRAPHIC IMAGIN01/31/2024 CLINICAL: Right breast mass. PATIENT CONSENT: Risks (minor bleeding, infection, vasovagal reaction and repeat procedure), benefits and alternatives were explained to the patient and written informed consent was obtained. Correlation is made to exams dated: 01/31/2024 mammogram, 01/24/2024 ultrasound, 01/24/2024 mammogram, 01/12/2024 mammogram, 12/15/2016 ultrasound, and 12/15/2016 mammogram - [facility]. An ultrasound guided biopsy using real-time ultrasound was performed for the irregular shaped mass located in the right breast at 2 o'clock anterior depth 5 cm from the nipple. This was described on the previous mammography and ultrasound reports. The skin was prepped in the usual manner. Local anesthetic was administered to the access site. A skin sheldon was made in the breast. The abnormality was approached from the lateral aspect. A 12 gauge biopsy needle was placed adjacent to the abnormality under ultrasound guidance. Once the needle was documented to be in the correct location, five specimens were obtained using an automated biopsy gun. A Vision clip was inserted into the biopsy cavity. A sterile dressing was applied to the access site. Post procedure mammographic imaging demonstrates the location device at the targeted area. The specimens were sent to the laboratory for pathological analysis. IMPRESSION: ULTRASOUND GUIDED BIOPSY MALIGNANT Ultrasound guided biopsy of the mass in the right breast at 2 o'clock anterior depth 5 cm from the nipple was successful. 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 Pathology results are concordant with imaging findings. A surgical/oncologic consultation is recommended. Consider breast MRI for further evaluation of extent of disease. This exam was interpreted at Station ID: [id number]. Juan Jose Rodriguez M.D. Joaquina Schmitt M.D., Ph.D. [email or web address]/:02/09/2024 14:16:42
--- NOTE | 2024-01-31 14:38 | PATH_ITS ---
[facility] Accession Number: [id number] No. of containers..01 Tissue . 01 Material submitted: . breast - RT BREAST 2:00 . 01 Clinical history: . RT BREAST 2:00, 5CMFN . 01 Diagnosis: RIGHT BREAST 2 O'CLOCK, 5 CM FN, IMAGE-GUIDED BIOPSIES: Invasive ductal carcinoma, NOS, low grade. Combined total Robins histologic score: 4 out of 9 possible (histologic 1, nuclear 2, mitotic index 1). Overall grade: Grade 1/3 (low grade). In situ carcinoma present: Ductal type, cribriform and solid architecture with low nuclear grade, without necrosis. Lymphovascular invasion: Not identified. Microcalcifications: Present within invasive carcinoma and benign ducts. Greatest linear extent of invasive carcinoma: 6.5 mm, as measured on the glass slide. Predictive markers: Estrogen and Progesterone Receptors positive, HER2 negative for expression by immunohistochemistry (please see comment for additional parameters). Please see microscopic description. MRV 02/02/2024 1708 Local . 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 Capri Asencio, who agrees with the interpretation. . Results were called to BERNARD Peters, on 02/02/2024 at 1:40 pm. . 01 Electronically signed: . Hayley James MD, Pathologist NPI- [id number] . 01 Gross description: . Received is one formalin-filled container labeled with the patient's name labeled Rt. breast 0200 5 cm FN. The specimen is received with plastic filter in container and sample loose in container and consists of multiple yellow-gooden to gooden-granados pieces of tissue which range in size from 0.1 x 0.1 x 0.1 cm to 1.6 x 0.3 x 0.3 cm. The specimen is entirely submitted in cassette A1. . Possible collection date and time per requisition 01/31/2024 at 1443 hours. Total fixation time approxmiately 12 hours. (DC:[id number]) /MARGE 02/01/2024 0604 Local . 01 Microscopic: . P63 and myosin immunostains show absence of basal/myoepithelial cell layer on the infiltrating tumor cells (with internal control working well). P63 and myosin immunostains also highlight the presence of carcinoma in situ. E-cadherin immunostain is performed and shows strong positivity on the tumor cells, supporting ductal differentiation. GATA3 immunostain is performed and is positive on the tumor cells, supporting breast origin. . Estrogen Receptor (SP1): Positive, 91-100%, with strong intensity. Progesterone Receptor (1E2): Positive, 80-90%, moderate to strong intensity). HER2 (4B5): Negative (1+). . Internal controls for ER and GA are positive. Cold ischemic time is <5 minutes. The scoring criteria for breast biomarkers by immunohistochemistry is based on the ASCO/CAP guidelines (Latoya AC et al, J Clin Oncol: 2017Dec 12;36(20):0921-8154 and Nam ME et al, Arch Pathol Lab Med: 2009;134(6):907-22). Deparaffinized sections of formalin fixed tissue (along with appropriate positive controls) are incubated with the above antibody(s). Using the automated [place] stainer, tissue is incubated with the designated antibody which is then localized by a non-biotin, dual polymer detection system. The external controls are reviewed for appropriate reactivity and found to be adequate. Results on the target cell population are indicated above. These tests have not been validated on decalcified or alcohol-based fixed tissue. This test was developed and its performance characteristics determined by [employer]. It has not been cleared or approved by the U.S. Food and Drug Administration. The FDA has determined that such clearance or approval is not necessary. This test is used for clinical purposes. It should not be regarded as investigational or for research. . 01 Pathologist provided ICD-10: C50.911 . 01 CPT . 423890, A96446, J98623, 226547, 861931, 157862 Performed at: [address] [facility], [place], [place] [id number] MD Brad Sood MD Phone: [phone]
--- NOTE | 2024-01-31 14:40 | PATH_ITS ---
[facility] Accession Number: [id number] No. of containers..01 Tissue . 01 Material submitted: . axilla - RT AXILLA LYMPH NODE . 01 Diagnosis: RIGHT AXILLA LYMPH NODE, CORE BIOPSIES: Benign lymphoid tissue with tattoo pigment. Negative for metastatic carcinoma. MRV 02/02/2024 1553 Local . 01 Comment: As part of ongoing director of quality control, this case is also reviewed by Dr. Capri Asencio, who agrees with the diagnosis. . 01 Electronically signed: . Hayley James MD, Pathologist NPI- [id number] . 01 Gross description: . Received is one formalin-filled container labeled with the patient's name labeled Rt. axilla, are four gooden-granados cylindrical shaped portions of tissue which range in size from 0.2 x 0.1 x 0.1 cm to 1.1 x 0.1 x 0.1 cm. All fragments are totally submitted in cassette A1. . Possible collection date and time per requisition 01/31/2024 at 1443 hours. Total fixation time approximately 12 hours. (DC:[id number]) /MARGE 02/01/2024 0607 Local . 01 Pathologist provided ICD-10: R59.0 . 01 CPT . 245358 Performed at: [address] [facility] [address], [place], [place] [id number] MD Brad Sood MD Phone: [phone]
== END ==
PROVIDERS: PCP Family Medicine; Referring Provider Family Medicine; Visit Provider Family Medicine
DX: C50.211 Malignant neoplasm of upper-inner quadrant of right female breast (principal); Z17.0 Estrogen receptor positive status [ER+]
CPT/HCPCS: 19083; 38505; 76942; 77065

== ENCOUNTER → 2024-02-28 07:59 | Outpatient (CLI) | payer OTHER, SELFPAY ==
--- NOTE | 2024-02-28 08:00 | DI.NM.S_ITS ---
PROCEDURE: NM SENTINEL NODE INJECT ONLY RADIOPHARMACEUTICAL: 1.1 mCi Millipore filtered Tc-99m sulfur colloid. INDICATIONS: breast cancer right breast COMPARISON: None. PROCEDURE: The area around the nipple was prepped and draped in a sterile fashion. Tc-99m sulfur colloid was injected intra-dermally around the outer edge of the areola in the right breast. No image was obtained. IMPRESSION: Administration of radiotracer into the right breast periareolar region for intra-operative sentinel lymph node localization. Dictated by: Clarence Malone M.D. on 02/28/2024 at 12:07 Approved by: Clarence Malone M.D. on 02/28/2024 at 12:08
== END ==
PROVIDERS: PCP Family Medicine; Referring Provider Surgery; Visit Provider Surgery
DX: C50.911 Malignant neoplasm of unspecified site of right female breast (principal)
CPT/HCPCS: 38792; A9541

== ENCOUNTER 2024-02-28 08:00 | Day surgery (SDC) | payer OTHER, SELFPAY ==
[2024-02-26 08:08] VITALS: BMI 26.9
--- NOTE | 2024-02-27 09:22 | PM.PREOP ---
Pre-operative Note Interval Note History & Physical reviewed/Exam performed by Physician: Yes Changes to H&P: No
[2024-02-28] VITALS (11 sets, daily range): BP systolic 104–138; BP diastolic 71–94; PULSE 79–108; RESP 12–22; TEMP 36.1–37.1; O2SAT 88–95; BMI 28.2
--- NOTE | 2024-02-28 | PATH_ITS ---
[facility] Accession Number: [id number] No. of containers..03 Tissue . 01 Material submitted: . PART A: breast - RIGHT BREAST TISSUE #1 PART B: breast - RIGHT BREAST TISSUE #2 PART C: AXILLARY - RIGHT AXILLARY CONTENTS . 01 Diagnosis: A. RIGHT BREAST TISSUE #1, LUMPECTOMY: Invasive ductal carcinoma, low grade. Combined total Marely histologic score: 4 out of 9 -Glandular (acinar)/tubular differentiation score 1, -Nuclear pleomorphism score 2, -Mitotic rate score 1. Overall grade: Grade 1 (total score 4/9). Tumor size of invasive carcinoma as measured on the glass slide: 6 mm. Tumor focality: Single focus of invasive carcinoma, please see microscopic description. Ductal carcinoma in situ (DCIS): Present. Negative for extensive intraductal component. Ductal carcinoma in situ is multifocal (in 7 blocks out of 11 blocks examined). Architectural pattern: Cribriform and rare solid. Nuclear grade: Grade 1 (low). Necrosis: Not identified. Number of blocks with DCIS: 7. Number of blocks examined: 11. Lobular carcinoma in situ (LCIS): Not identified. Skin: Not present. Skeletal muscle: Not present. Lymphovascular invasion: Not identified. Microcalcifications present in invasive carcinoma and in nonneoplastic tissue. Surgical margins: Margin status for invasive carcinoma: Small focus of invasive carcinoma is present at the green-inked margin (anterior margin per surgeon), please see microscopic description. The closest margin from the invasive carcinoma is the blue-inked margin (inferior margin per surgeon), 2 mm. Remaining margins are more than 2 mm away from the invasive tumor. Margin status for DCIS: All margins are negative for DCIS. Distance of DCIS from the closest margin: 1.5 mm from the yellow margin (medial margin per surgeon), 1 mm from the black-inked margin (posterior per surgeon) and 2 mm from the green-inked margin (anterior per surgeon). Additional findings: Previous biopsy changes, sclerosing adenosis, duct ectasia, and intraductal papilloma. . B. RIGHT BREAST TISSUE #2, LUMPECTOMY: No invasive carcinoma is identified. Ductal carcinoma in situ: Identified, low nuclear grade, cribriform pattern, no necrosis. A focus of atypical lobular hyperplasia is also present. The closest margin to ductal carcinoma in situ is the orange-inked margin (lateral per surgeon), 2 mm. Remaining margins are more than 2 mm away. The closest margin to atypical lobular hyperplasia is the orange-inked margin (lateral per surgeon), 1 mm. Additional findings: Duct ectasia, sclerosing adenosis and intraductal papilloma. Ductal carcinoma in situ is present in 2 blocks. Total number of blocks: 16. . C. RIGHT AXILLARY CONTENTS, AXILLARY DISSECTION: There is no metastatic carcinoma in 6 lymph nodes examined (0/6), please see microscopic description. Benign lymph nodes with reactive changes (sinus histocytosis, fibrosis, and focal calcifications) and tattoo pigment. MRV 03/06/2024 1217 Local . 01 Electronically signed: . Hayley James MD, Pathologist NPI- [id number] . 01 Gross description: . A. Received: In formalin with two patient identifiers, and right breast tissue #1. Specimen: A previously inked lumpectomy. Note: Per Dr. Acuña, the specimen should be treated as unoriented. Since the past specimen is still previously inked, all six colors will remain. Weight: 28 grams. Measurement: 6.0 cm from red to blue, 4.0 cm from yellow to orange, 3.2 cm from green to black. Skin ellipse: Absent. Wire: Absent. Margins: Inked by the surgeon with red opposite blue, yellow opposite orange, and green opposite black. Inking reinforced at the bench. Sliced: From red to blue into 11 slices. Lesion: One lesion identified. Description: An ill-defined pale granados stellate lesion, 0.7 x 0.7 x 0.6 cm. Slices involved: Slices 8 and 9. Biopsy: A Vision shaped biopsy clip is found in slice 9. Distance to margins: 0.1 cm from the junction of the blue and black-inked margins, 0.2 cm from the green-inked margin, and greater than 1 cm from all remaining margins. Other: The cut surfaces are yellow to white fibroadipose tissue with dense fibrous tissue occupying approximately 30% of the cut surface with no additional lesions identified. Fixation: The specimen was removed on 02/28/2024, time not provided; cold ischemic time cannot be calculated, and total fixation time is approximately 65 hours following additional fixation. Animal Tech sections are submitted as follows: A1: Rep slice 1 red margin perpendicular. A2-A3: Composite slice 3. A4-A5: Composite slice 5. A6: Intact slice 7. A7: Intact slice 8. A8: Intact slice 9 with biopsy site. A9: Intact slice 10. A10-A11: Entire slice 11 blue margin perpendicular. . B. Received: In formalin with two patient identifiers and right breast tissue #2 . Specimen: A previously inked right lumpectomy. Weight: 66 grams. Measurement: 7.6 cm from superior to inferior, 7.0 cm from medial to lateral, 2.7 cm from anterior to posterior. Skin ellipse: Absent. Wire: Absent. Margins: Inked by the surgeon as follows: Anterior green, inferior blue, lateral orange, medial yellow, posterior black, superior red. Inking reinforced at the bench. Sliced: From superior to inferior into 11 slices. Lesion: No distinct lesions identified. Other: The cut surfaces are yellow to white fibroadipose tissue with dense white fibrous tissue occupying approximately 50% of the cut surface. Fixation: The specimen was removed on 02/28/2024, time not provided; cold ischemic time cannot be calculated, and total fixation time is approximately 65 hours following additional fixation. Animal Tech sections are submitted as follows: Note: Purple-inked edges are adjacent in the composite sections. B1-B2: Animal Tech slice 1 red margin perpendicular. B3-B5: Composite slice 3. B6-B8: Composite slice 5. B9-B11: Composite slice 7. B12-B14: Composite slice 9. B15-B16: Animal Tech slice 11 blue margin perpendicular. C. Received in formalin with two patient identifiers and right axillary contents, is a yellow, lobulated fragment of soft tissue, 6.4 x 5.1 x 2.2 cm. Palpation reveals six granados lymph node candidates ranging from 0.4 to 1.2 cm in greatest dimension. A cylindrical-shaped biopsy clip is identified upon palpation; however, no definitive associated lymph node can be identified. One lymph node candidate is dyed blue, measuring 1.2 x 1.2 x 0.7 cm. The lymph node candidates are submitted as follows: C1: Single bisected lymph node candidate. C2: Single, serially sectioned lymph node candidate. C3: Two intact lymph node candidates. C4-C5: Single, serially sectioned blue-inked lymph node candidate. C6-C7: Single, serially sectioned lymph node candidate. ([id number]) /MRV 03/06/2024 1217 Local . 01 Microscopic: . A. Microscopic examination reveals invasive ductal carcinoma with the characteristics that are already described in the final diagnosis, present in blocks A8 and A9. The invasive ductal carcinoma involves focally the green-inked margin (anterior per surgeon) on slide A9, for a span of 1 mm, and also is located 2 mm from the closest blue-inked margin (inferior per surgeon), on block A8. . Block A8: p63 and myosin immunostains support the extent and the size of the invasive carcinoma. . Block A9: P63, myosin, and deeper levels support the presence of small focus of invasive carcinoma that involves the green-inked margin (anterior margin per surgeon). This detached appearing focus present at the inked and cauterized edge of the tissue is best interpreted as involvement of the green-inked margin (anterior margin). . Blocks B6, B9 and B15: P63 and smooth muscle actin immunostains are performed supporting absence of invasive carcinoma. In addition, E-cadherin immunostain performed on block B9 supports focus of atypical lobular hyperplasia. . Blocks C4 and C6: Panepithelial marker (YAAKOV) is negative for metastatic carcinoma, supporting the diagnosis of benign lymph nodes. . As part of ongoing quality specialist, selected slides (A8, A9, B9) are also reviewed by Dr. Nidhi Christian, who agrees with the findings. . * This test was developed and its performance characteristics determined by [facility]. It has not been cleared or approved by the U.S. Food and Drug Administration. The FDA has determined that such clearance or approval is not necessary. This test is used for clinical purposes. It should not be regarded as investigational or for research. . 01 Pathologist provided ICD-10: C50.911 . 01 CPT . 957440, 208333, 490107, M65059, L54678 Specimen Comment: A courtesy copy of this report has been sent to [phone] Performed at: [address] [id number] MD Brad Sood MD Phone: [phone]
[2024-02-28] MEDS: LACTATED RINGERS 1,000 ML 42 ML IV (08:45)
[2024-02-28] MEDS: ACETAMINOPHEN 325 MG TABLET 975 MG PO (09:29)
[2024-02-28] MEDS: ALBUTEROL/IPRATROPIUM 3 ML AMPUL INH ×2 (10:06→14:07)
--- NOTE | 2024-02-28 11:49 | P.OP_ITS ---
Operative Date/Time/Diagnoses Date of procedure: 02/28/24 Time of procedure: 14:10 Pre-op diagnosis: Right breast cancer Post-op diagnosis: same Procedure & Clinicians Procedure: Right lumpectomy and sentinel lymph node biopsy Same procedure as scheduled: Yes Indications: Kena Patino is a 53-year-old woman found to have a 7 mm right breast cancer ER positive, IA positive HER2 negative low-grade. Ultrasound of the axilla demonstrated mild lymphadenopathy biopsy of the lymph node was performed which resulted benign. Surgeon: Gil Acuña Project Controls Specialist: Jaswinder Hobson Anesthesia Type: General Operative Notes Findings: Clip is identified within right breast specimen 1 Abnormally fibrotic breast material within breast specimen 2 Several firm enlarged axillary nodes Specimen(s): other (Breast specimen 1, breast specimen 2) Estimated Blood Loss (mL): 20 Procedure in detail: Patient was brought to the operating room placed supine on the table. General anesthesia was induced and she was intubated with an endotracheal tube. She was then prepped and draped in sterile fashion. Time-out performed. A curvilinear incision was made on the right periareolar tissue. There was a firm mass in the 3 o'clock position which was excised labeled breast specimen 1. Radiology demonstrated the presence of the clip within this mass. Exploration of the lumpectomy wound demonstrated additional firm abnormal breast tissue inferior to the original mass. This 2nd breast specimen which was inferior to specimen 1 was fairly extensive in order to incorporate all of the abnormal tissue. Both of the specimens were marked as follows: Anterior Green Inferior Blue Lateral [place] Medial Yellow Posterior Black Superior Red A clip was placed in the wound to correspond with the removal of specimen 1. We then proceeded with a sentinel lymph node biopsy. We made a incision approximately 2 cm below the hair bearing region of the axilla. The subcutaneous tissues were divided. The Neoprobe was used to identify the point of maximal radial active uptake. There was a cluster of lymph nodes with incr eased uptake as well as specks of methylene blue. The axillary content specimen contained additional lymph nodes above and beyond the sentinel lymph node as there were several that were abnormally enlarged and firm. Hemoclips were used to ligate the lymphatics. Hemostasis was achieved. The wound cavities were lavaged and returned clear. The incisions were then closed using Monocryl followed by the application of Dermabond.. Sponge and instrument count at the end of the operation was correct. She emerged from anesthesia was extubated and transferred to recovery in stable condition. Following the operation I discussed with her my concern that her breast cancer maybe more extensive than had been described radiographically. Complications: none Post-operative Condition: stable Disposition: same day surgery
[2024-02-28] MEDS: CEFAZOLIN 2 GM/100 ML PREMIX 100 ML IV (12:39)
[2024-02-28] MEDS: METHYLENE BLUE 50 MG/10 ML VIAL INJ (12:46)
[2024-02-28] MEDS: BUPIVACAINE 0.25% (PF) VIAL 30 ML INJ (12:54)
--- NOTE | 2024-02-28 12:58 | SUR.OPER ---
Supine on padded OR bed, head on pillow, arms secured on padded arm boards at <90 degrees abduction, legs uncrossed, safety belt at thigh, tape over blanket over lower legs.
[2024-02-28] MEDS: OXYCODONE IR 5 MG TABLET PO (14:38)
--- NOTE | 2024-02-28 14:41 | SUR.PHASEI ---
Addendum entered by Lisa Corrales R.N. 02/28/24 15:03: 1500 - Patient 88% on 1L O2. Transferred to phase 2 on 1L O2. Report given to receiving phase 2 RNNkechi. Original Note: 1440 - Patient has COPD. States at home her oxygen goes down to 86% at times and that she is usually 88-92% on room air. Dr. Acuña notified of this and that she is currently 88-92% on 1L. Dr. Acuña states goal is >88% on room air for discharge home. Weaning to room air.
--- NOTE | 2024-02-28 16:02 | SUR.PHASEII ---
Phase II/discharge Patient alert/awake and resting comfortably at this time. Respirations at baseline. Shallow breaths with expiratory wheezes to auscultation. Patient had expiratory and inspiratory wheezes on admit with slight tachypnea. Patient reported that she gets short of breath often even at rest at home. Uses inhalers frequently throughout the day. Anesthesia and Surgeon aware of these findings. Also received in report from Lisa WAGNER that Dr. Acuña okay with patient discharge with SaO2 at or above 88%. Patient has been 88-89% on room air for over 30 minutes. Converses easily without shortness of breath. Verbalizes that she feels fine. Patient discharged home accompanied by spouse via private vehicle.
== END 2024-02-28 15:50 | disposition home or self-care (01) ==
PROVIDERS: PCP Family Medicine; Referring Provider Surgery; Visit Provider Surgery
PROC: (CPT 19301; principal; 2024-02-28 12:30)
DX: C50.911 Malignant neoplasm of unspecified site of right female breast (principal); Z17.0 Estrogen receptor positive status [ER+]
CPT/HCPCS: 38500; 19125; 19126; 19301; 38792; 82962; A9541; J0690; J1100; J1170; J2250; J2405; J2704; J3010; Q9968

== ENCOUNTER 2024-04-03 07:34 | Day surgery (SDC) | payer OTHER, SELFPAY ==
[2024-04-01 13:50] VITALS: BMI 28.4
--- NOTE | 2024-04-02 14:47 | PM.PREOP ---
Pre-operative Note Interval Note History & Physical reviewed/Exam performed by Physician: Yes Changes to H&P: No
[2024-04-03] VITALS (7 sets, daily range): BP systolic 96–128; BP diastolic 65–85; PULSE 90–103; RESP 18–24; TEMP 36.3–37.1; O2SAT 93–99; BMI 27.7
--- NOTE | 2024-04-03 | PATH_ITS ---
[facility] Accession Number: [id number] No. of containers..01 Tissue . 01 Material submitted: . breast - RIGHT BREAST . 01 Diagnosis: RIGHT BREAST, LUMPECTOMY: -There is no residual invasive ductal carcinoma. -Ductal carcinoma in situ is present (DCIS), low nuclear grade, cribriform pattern, without necrosis. -Margin status: Negative for ductal carcinoma in situ. Ductal carcinoma in situ is located 1 mm from the anterior margin (green-inked, block A1), 1 mm from the lateral margin (orange-inked, block A2), and 1 mm from the inferior margin (blue-inked, block A3). -Ductal carcinoma in situ is present in three out of nine blocks examined. -Additional findings: Previous biopsy changes. Calcifications associated with benign ducts, fibrocystic changes, sclerosing adenosis, and sclerosed/solid intraductal papilloma. . Please see microscopic description. V 04/09/2024 1315 Local . 01 Comment: As part of ongoing quality engineering manager, selected slides (A1 and immuostains) are reviewed by Dr. Kindra Boggs, who agrees with the interpretation. . 01 Electronically signed: . Hayley James MD, Pathologist NPI- [id number] . 01 Gross description: . Received: In formalin with two patient identifiers and right breast anterior margin. Specimen: An oriented, previously inked right lumpectomy. Weight: 9 grams. Measurement: 3.1 cm superior to inferior, 3.6 cm medial to lateral, 1.7 cm anterior to posterior. Skin ellipse: Absent. Wire: Absent. Margins: Inked by the surgeon as follows: Anterior green, inferior blue, lateral orange, medial yellow, posterior black, superior red. Inking reinforced at the bench. Sliced: From lateral to medial into seven slices. Lesion: No distinct lesions are identified. Other: The cut surfaces are yellow to white fibroadipose tissue with pale yellow adipose adjacent to the black-inked margin, consistent with surgical site changes. Fibrous tissue is scant and occupies less than 10% of the cut surface. Excision: Specimen was removed on 04/03/2024, time not provided. Cold ischemic time cannot be calculated. Total fixation time is approximately 41 hours following additional fixation. The specimen is submitted entirely as follows: A1-A2: Slice 1, orange margin perpendicular. A3-A7: Sequential slices 2-6. A8-A9: Entire slice 7, yellow margin perpendicular. ([id number]) /MRV 04/04/2024 1221 Local . 01 Microscopic: . To evaluate the focus of sclerosed intraductal papilloma and adenosis, p63 and myosin immunostains are performed (to rule out the possibility of residual focus of infiltrating carcinoma), and the stains support the diagnosis, arguing against infiltrating carcinoma. . CK5/6 and Estrogen Receptor immunostains are also performed on blocks A1 and A2, supporting the presence of ductal carcinoma in situ (over usual ductal hyperplasia)-in relation to the closest lateral and anterior margins. . * This test was developed and the performance characteristics were validated by [facility]_. It has not been cleared or approved by the U.S. Food and Drug Administration. . 01 Pathologist provided ICD-10: C50.911 . 01 CPT . 505540, Y22277, Z54943 Specimen Comment: A courtesy copy of this report has been sent to [phone] Performed at: [address] [address], [place], [place] [id number] MD Brad Sood MD Phone: [phone]
[2024-04-03] MEDS: ACETAMINOPHEN 325 MG TABLET 650 MG PO (08:23)
[2024-04-03] MEDS: ALBUTEROL/IPRATROPIUM 3 ML AMPUL INH ×2 (08:25→10:44)
[2024-04-03] MEDS: CLINDAMYCIN 900 MG/50 ML PIGGYBACK 50 MG IV (09:16)
--- NOTE | 2024-04-03 09:24 | SUR.OPER ---
Supine on padded OR bed, head on pillow, arms secured on padded arm boards at <90 degrees abduction, legs uncrossed, safety belt at thigh, tape over blanket over lower legs.
[2024-04-03] MEDS: BUPIVACAINE 0.5% (PF) 30 ML VIAL INJ (09:35)
--- NOTE | 2024-04-03 10:14 | P.OP_ITS ---
Operative Date/Time/Diagnoses Date of procedure: 04/03/24 Time of procedure: 10:14 Pre-op diagnosis: Right breast cancer, positive margin Post-op diagnosis: same Procedure & Clinicians Procedure: Re-excision of right lumpectomy margin Same procedure as scheduled: Yes Indications: 53-year-old woman with 0.7 cm hormone positive HER2 negative ductal carcinoma who underwent a needle-guided lumpectomy 2 weeks ago. The anterior margin of the specimen demonstrates a minute focus of carcinoma and she returns to the operating room today for re-excision. Surgeon: Gil Acuña Click Yes if Unassisted: Yes Anesthesia Type: General Operative Notes Findings: Small seroma within the lumpectomy cavity otherwise unremarkable. Specimen(s): other (Anterior margin) Estimated Blood Loss (mL): 20 Procedure in detail: Patient was brought to the operating room placed supine on the table. Bilateral lower extremity compression devices applied. Anesthesia induced intubated with LMA. She received 900 mg of clindamycin prior to incision. She was prepped and draped sterile fashion. Time-out performed. The curvilinear periareolar incision on the right breast was reopened and the lumpectomy cavity was explored. There was a small seroma within the cavity otherwise unremarkable. The anterior margin was excised using the knife. It was marked using paint as follows. Anterior Green Inferior Blue Lateral [place] Medial Yellow Posterior Black Superior Red The lumpectomy cavity was closed in layers using Vicryl. Skin closed with running Monocryl suture followed by the application of Dermabond. Sponge and instrument count was correct x2. She emerged from anesthesia was transferred to recovery in stable condition. Complications: none Post-operative Condition: stable Disposition: same day surgery
[2024-04-03] MEDS: LACTATED RINGERS 1,000 ML 42 ML IV (10:49)
== END 2024-04-03 10:58 | disposition home or self-care (01) ==
PROVIDERS: PCP Family Medicine; Referring Provider Surgery; Visit Provider Surgery
PROC: (CPT 19301; principal; 2024-04-03 09:15)
DX: C50.911 Malignant neoplasm of unspecified site of right female breast (principal); Z17.0 Estrogen receptor positive status [ER+]; Z17.32 Human epidermal growth factor receptor 2 negative status
CPT/HCPCS: 19301; J1100; J1885; J2250; J2405; J2704; J3010

== ENCOUNTER 2024-05-01 06:25 | Day surgery (SDC) | payer OTHER, SELFPAY ==
[2024-04-26 11:00] VITALS: BMI 28.0
--- NOTE | 2024-04-30 11:29 | PM.PREOP ---
Pre-operative Note Interval Note History & Physical reviewed/Exam performed by Physician: Yes Changes to H&P: No
[2024-05-01] VITALS (11 sets, daily range): BP systolic 82–132; BP diastolic 52–86; PULSE 90–106; RESP 14–19; TEMP 36.3–37.6; O2SAT 90–96; BMI 28.0
--- NOTE | 2024-05-01 | PATH_ITS ---
[facility] Accession Number: [id number] No. of containers..02 Tissue . 01 Material submitted: . PART A: breast - LEFT BREAST PART B: breast - RIGHT BREAST . 01 Clinical history: . A: LONG LATERAL, SHORT STITCH SUPERIOR B: LONG LATERAL, SHORT SUPERIOR . 01 Diagnosis: A. LEFT BREAST, SIMPLE MASTECTOMY: Benign breast parenchyma, with fibrocystic changes, focal ductal hyperplasia usual type, without atypia, focal fibroadenomatoid changes, duct ectasia, and calcifications within benign ducts. Negative for in situ or invasive carcinoma. Skin without pathologic abnormalities. Surgical margins: Unremarkable. . B. RIGHT BREAST, SIMPLE MASTECTOMY: Benign breast parenchyma with extensive previous biopsy changes, focal duct ectasia, and rare calcifications associated with benign ducts. Negative for residual in situ or invasive carcinoma. Skin without pathologic abnormalities. Two benign lymph nodes, with reactive changes, please see comment. Surgical margins: Unremarkable. [facility] 05/07/2024 1618 Local . 01 Comment: YAAKOV (panepithelial marker) immunostain is performed on block B12 and is negative, supporting the diagnosis of benign lymph node. . * This test was developed and the performance characteristics were validated by [facility]. It has not been cleared or approved by the U.S. Food and Drug Administration. . 01 Electronically signed: . Hayley James MD, Pathologist NPI- [id number] . 01 Gross description: . A. Received: In formalin with two patient identifiers and left breast tissue long lateral short superior. Specimen: An oriented simple mastectomy. Weight: 364 grams. Measurement: 15.6 cm superior to inferior, 14.8 cm medial to lateral, 5.1 cm anterior to posterior. Skin ellipse: Present, oriented with a short suture superior and a long suture lateral, per the requisition, with granados, wrinkled, unremarkable skin, 11.1 x 4.9 cm. Nipple/areola: A 1.4 x 1.4 cm diameter everted nipple is within an unremarkable 2.7 x 2.6 cm areola. Axillary tail: Not identified. Margins: Unremarkable, inked anterior superior blue, anterior inferior green, posterior black. Slices: Sliced from medial to lateral into 17 slices. Lesion: No lesions identified. Other: The cut surfaces are yellow to white fibroadipose tissue with fibrous tissue occupying approximately 30% of the cut surface. Fixation: Specimen was removed on 05/01/2024, time not provided. Cold ischemic time cannot be calculated. Total fixation time is approximately 65 hours. Finisher Hot Strip sections are submitted as follows: A1: Entire bisected nipple. A2: Upper inner quadrant. A3: Lower inner quadrant. A4: Lower outer quadrant. A5: Upper outer quadrant. B. Received: In formalin, with two patient identifiers and right breast tissue. Specimen: An oriented and fragmented right simple mastectomy. Weight: 314 grams. Measurement: 22.5 cm medial to lateral, 13.4 cm superior to inferior, 4.0 cm anterior posterior. The detached fragments aggregate to 8.9 x 8.5 x 2.4 cm. Skin ellipse: Oriented with a short suture superior and a long suture lateral per the requisition. Skin is granados and wrinkled, and measures 11.4 x 5.5 cm. Nipple/areola: A sunken 1.4 x 1.0 cm nipple is within a 3.2 x 2.6 cm areola with a curvilinear scar approximately 11-3 o'clock measuring 3.2 cm in length. Axillary tail: Possibly present and attached, measuring 9.2 x 5.4 x 1.8 cm. Margins: The margins are ragged and irregular. Due to the fragmented nature of the specimen, true margins cannot be determined; however, the oriented breast is inked anterior superior blue, anterior inferior green, posterior black. Slices: Sectioned from lateral to medial into 14 slices (not including the axillary tail). Lesion: Seroma cavity. Description: A seroma cavity and associated changes is located central/slightly medial at middle depth in the lower inner quadrant. Size: 6.2 x 4.4 x 1.6 cm. Slices involved: 4-12. Distance to margins: 0.2 cm from the anterior superior margin, fibrous changes grossly involving the black posterior margin, 0.9 cm from the green anterior inferior margin. Other: The remaining cut surfaces are yellow to white fibroadipose tissue with scant fibrous tissue occupying approximately 10% of the cut surface. Palpation of the axillary tail reveals two granados lymph node candidates, 0.4 and 1.3 cm in greatest dimension. Additional unoriented fragments of tissue are yellow and lobulated with small fragment of skin and granados smooth areas consistent with additional seroma cavity. The aforementioned seroma cavity appears complete within the breast. No lesion are identified. Fixation: Specimen was removed on 05/01/2024, time not provided. Cold ischemic time cannot be calculated. Total fixation time is approximately 65 hours. Finisher Hot Strip sections are submitted as follows: B1-B2: Entire sectioned nipple and adjacent scar. B3: Slice 5, seroma cavity changes involving posterior margins. B4: Slice 6, seroma cavity nearest to anterior superior margin and skin. B5: Slice 7, seroma cavity to nearest anterior inferior margin. B6: Slice 8, posterior and superior seroma cavity. B7: Slice 9, anterior seroma cavity and skin. B8-B9: Seroma cavity from the separate fragments of breast tissue. B10: Upper inner quadrant. B11: Upper outer quadrant. B12: Single bisected lymph node candidate. B13: Single intact lymph node candidate. ([id number]) /MRV 05/03/2024 1814 Local . 01 Pathologist provided ICD-10: C50.911 . 01 CPT . 233609, [id number], [id number] Performed at: [address] [address], [place], [place] [id number] MD Brad Sood MD Phone: [phone]
[2024-05-01] MEDS: LACTATED RINGERS 1,000 ML 42 ML IV ×2 (07:36→10:31)
[2024-05-01] MEDS: ACETAMINOPHEN 325 MG TABLET 975 MG PO (07:37)
[2024-05-01] MEDS: ALBUTEROL/IPRATROPIUM 3 ML AMPUL INH ×2 (07:37→12:44)
[2024-05-01] MEDS: CLINDAMYCIN 900 MG/50 ML PIGGYBACK 50 MG IV (07:57)
--- NOTE | 2024-05-01 08:14 | SUR.OPER ---
Supine on padded OR bed, head on pillow, arms secured on padded arm boards at <90 degrees abduction, legs uncrossed, safety belt at thigh, tape over blanket over lower legs.
[2024-05-01] MEDS: BUPIVACAINE 0.25% (PF) VIAL 30 ML INJ (08:18)
--- NOTE | 2024-05-01 10:25 | PM.OP.1 ---
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 The axilla demonstrated 6 lymph nodes negative for malignancy. Unfortunately there was a minute focus of carcinoma on the anterior margin and she returned to the operating room April 03 for reexcision of margin. Pathology from the most recent margin resection and demonstrates no residual invasive carcinoma however DCIS is present and it is located 1 mm from the anterior margin 1 mm from the lateral margin and 1 mm from the inferior margin. She is here today for bilateral mastectomy Surgeon: Gil Acuña Director Of Home Economics: Jaswinder Hobson Anesthesia Type: General Operative Notes Findings: Seroma capsule within right axillia Specimen(s): other (left breast-short stich superior long stitch lateral. right breast-short stich superior long stitch lateral.) Estimated Blood Loss (mL): 50 Procedure in detail: Patient was brought to the operating room placed supine on the table. Bilateral lower extremity compression devices were applied. She received 900 mg of clindamycin prior to skin incision. She was intubated with an endotracheal tube. She was then prepped and draped in sterile fashion. Time-out was performed. An elliptical incision around the nipple areola complex was made with the knife on the right breast. The subcutaneous tissue was divided with electrocautery. Skin flaps were raised to separate the breast tissue from the skin along the subdermal plexus. The dissection was extended superior to the clavicle, medial to the sternum, inferior the the inframamary fold and lateral to the anterior border of the latisimus dorsi. Next the breast tissue was from the underlying pectoralis fascia. The breast was passed off the field marked short stitch superior long stitch lateral. A 19 Indian Jairon drain was placed into the cavity and secured. The wound was copiously irrigated and homeostasis was ensured. There was a seroma present within the right axilla which was drained. There was a capsule associated with the seroma which was excised. In doing so this slightly opened her prior right axillary incision and this was the wound edges were freshened and then it was closed. The mastectomy was closed with 3 0 Vicryl for the subcutaneous tissue and the skin was closed with 4 0 Monocryl followed by the application of Dermabond. We then addressed the left side. An elliptical incision around the nipple areola complex was made with the knife on the right breast. The subcutaneous tissue was divided with electrocautery. Skin flaps were raised to separate the breast tissue from the skin along the subdermal plexus. The dissection was extended superior to the clavicle, medial to the sternum, inferior the the inframamary fold and lateral to the anterior border of the latisimus dorsi. Next the breast tissue was from the underlying pectoralis fascia. The breast was passed off the field marked short stitch superior long stitch lateral. A 19 Indian Jairon drain was placed into the cavity and secured. The wound was copiously irrigated and homeostasis was ensured. The mastectomy was closed with 3 0 Vicryl for the subcutaneous tissue and the skin was closed with 4 0 Monocryl followed by the application of Dermabond. Patient tolerated procedure well she emerged from anesthesia was extubated and transferred to recovery room in stable condition. Complications: none Post-operative Condition: stable Disposition: same day surgery
[2024-05-01] MEDS: hydrOXYzine 50 MG/ML INJ 25 MG IM (11:32)
[2024-05-01] MEDS: fentaNYL 100 MCG/2 ML INJ IV (11:33)
[2024-05-01] MEDS: OXYCODONE IR 5 MG TABLET PO (12:44)
== END 2024-05-01 13:51 | disposition home or self-care (01) ==
LOC: OR 06:26 → AC 06:26
PROVIDERS: PCP Family Medicine; Referring Provider Surgery; Visit Provider Surgery
PROC: 0HTV0ZZ Resection of Bilateral Breast, Open Approach (ICD-10-PCS; CPT 19303; principal; 2024-05-01 07:45)
DX: C50.911 Malignant neoplasm of unspecified site of right female breast (principal); Z17.411 Hormone receptor positive with human epidermal growth factor receptor 2 negative status
CPT/HCPCS: 19303; J2250; J2704; J3010; J3410

== ENCOUNTER → 2024-05-27 10:22 | Outpatient (CLI) | payer OTHER, SELFPAY ==
--- NOTE | 2024-05-27 10:28 | DI.US.S_ITS ---
PROCEDURE: US PERIPH VENOUS UP EXTREM RT INDICATIONS: S/P BILAT MASTECTOMY / RULE OUT BLOOD CLOT TECHNIQUE: Real-time imaging, as well as color and pulse Doppler interrogation, was performed of the upper extremity deep veins from the inferior neck to the antecubital fossa. COMPARISON: None. FINDINGS: The internal jugular vein, visualized portions of the subclavian vein, axillary, and brachial veins are free of intraluminal thrombus. Where physically possible, the veins are normally compressible. Color and pulse Doppler demonstrate normal intraluminal flow, with expected phasicity and pulsatility. Additional scanning of the cephalic and basilic veins of the superficial system demonstrates normal compressibility, without thrombus. IMPRESSION: No findings of upper extremity deep venous thrombosis can be seen. Approved by: Abdulaziz Leigh M.D. on 05/27/2024 at 16:39
== END ==
PROVIDERS: PCP Family Medicine; Referring Provider Surgery; Visit Provider Surgery
DX: R60.0 Localized edema (principal); Z90.13 Acquired absence of bilateral breasts and nipples
CPT/HCPCS: 93971

== ENCOUNTER → 2024-12-27 08:39 | Outpatient (CLI) | payer OTHER, SELFPAY ==
--- NOTE | 2024-12-27 08:41 | DI.RAD.S_ITS ---
PROCEDURE: XR FEMUR LT MIN 2V, four images total INDICATIONS: Left leg injury TECHNIQUE: 2 views , four images total of the left femur were acquired. COMPARISON: None. FINDINGS: Moderate degenerative changes left hip with joint space narrowing and osteophytes. No radiographic evidence of displaced fracture, dislocation or high attenuation soft tissue foreign body. Mild vascular calcifications. IMPRESSION: Moderate degenerative changes left hip. No radiographic evidence of displaced fracture. If symptoms persist or worsen, or there is high clinical suspicion of left hip/ femur abnormality, MRI could be performed. Dictated by: Sourav Jaramillo M.D. on 12/27/2024 at 10:08 Approved by: Sourav Jaramillo M.D. on 12/27/2024 at 10:10
== END ==
PROVIDERS: PCP Family Medicine; Referring Provider Family Medicine; Visit Provider Registered Nurse
DX: M79.605 Pain in left leg (principal)
CPT/HCPCS: 73552

== ENCOUNTER 2025-01-10 09:28 | Emergency (ER) | payer OTHER, SELFPAY ==
[2025-01-10] VITALS (10 sets, daily range): BP systolic 157–184; BP diastolic 81–96; PULSE 98–121; RESP 14–23; TEMP 37; O2SAT 91–97; BMI 26.7
--- NOTE | 2025-01-10 10:06 | ED.NAVMDI ---
HPI - Nausea/Vomiting/Diarrhea General Chief complaint: Nausea/Vomiting/Diarrhea Stated complaint: Not eating; passing mucus poss blood Time Seen by Provider: 01/10/25 09:36 Source: patient Mode of arrival: Ambulatory History of Present Illness HPI Narrative: 54-year-old female smoker presents with 1 week decreased appetite, nausea, constipation, general malaise having only 1 stool bowel movement small liquid mucous with generalized weakness and no energy. Patient denies chest pain, shortness of breath, cough, sore throat, diarrhea, fever, chills, bodyaches, urinary complaints. Other than what is stated 14 point review of system is negative. Related Data Home Medications ?Medication ?Instructions ?Recorded ?Confirmed anastrozole 1 mg tablet 1 mg PO QAM 12/02/24 12/27/24 Previous Rx's ?Medication ?Instructions ?Recorded budesonide 1 mg/2 mL suspension 1 mg (2 mL) inhalation BID #120 mL 09/18/23 for nebulization acetaminophen 325 mg capsule 650 mg (2 x 325 mg) PO QID PRN 05/01/24 (Tylenol) pain #60 caps amlodipine 10 mg tablet See Rx Instructions .Route 12/02/24 .COMPLEX #90 tabs lisinopril 40 mg tablet 40 mg PO DAILY #90 tabs 12/02/24 ipratropium 0.5 mg-albuterol 3 mg 3 ml inhalation Q6H PRN shortness 12/04/24 (2.5 mg base)/3 mL nebulization of breath #360 mL soln albuterol sulfate 90 mcg/actuation 2 puff inhalation Q4-6H PRN for 12/24/24 aerosol inhaler dyspnea #17 grams Allergies Allergy/AdvReac Type Severity Reaction Status Date / Time propranolol Allergy Severe LUNG Verified 01/10/25 09:39 REACTION/ HOSPITALIZE PER PATIENT Penicillins Allergy Mild UNKNOWN Verified 01/10/25 09:39 pneumococcal vaccine Allergy Mild UNABLE TO Verified 01/10/25 09:39 MOVE ARM FOR 24 HOURS Influenza Virus Vaccines Allergy Unknown Had a bad Verified 01/10/25 09:39 reaction once Review of Systems Review of Systems ROS Unobtainable: All systems reviewed & are unremarkable except as noted in HPI and below Patient History Medical History Primary osteoarthritis of both hips Family history of drug dependence (09/27/17) Moderate alcohol use disorder, in early remission (12/30/10) Lymphedema Estrogen receptor positive status [ER+] Malignant neoplasm of right breast (~2023) Breast cancer, right (~02/2024) Spinal stenosis of cervical region with radiculopathy Cervical radiculopathy Influenza vaccine side effect Tear of right acetabular labrum Head injury, unspecified Talipes cavus Keratin cyst Postconcussive syndrome (2006) Chronic headaches (2006) Alcohol abuse Poorly controlled persistent asthma (11/14/14) Hypokalemia Alcoholic hepatitis Alcoholic pancreatitis Right ankle sprain Surgical History Hx of breast surgery (04/01/24) Status post right breast lumpectomy (02/28/24) Status post hysterectomy (2003) Family History Mother Heart disease Suicide Brother Suicide Father Parkinson's disease Social History household members: spouse Smoking Status: Current every day smoker Tobacco: How many years used: 36 quit status: not considering quitting alcohol intake: current substance use type: does not use Smoking Status: Current every day smoker alcohol intake frequency: 0-2 drinks per day Alcohol type: beer Exam Narrative Exam Narrative: GENERAL: [54] year old patient appears stated age. Well-developed patient, in mild distress. HEAD: Atraumatic. Normocephalic. EYES: Pupils equal round and reactive. Extraocular motions intact. No scleral icterus. No injection or drainage. ENT: Nose without bleeding, purulent drainage. Throat without erythema, tonsillar hypertrophy or exudate. Airway patent. NECK: Trachea midline. Non tender CARDIOVASCULAR: Regular rate and rhythm without murmurs, gallops, or rubs. RESPIRATORY: Clear to auscultation. Breath sounds equal bilaterally. No wheezes, rales, or rhonchi. GASTROINTESTINAL: Abdomen soft, non-tender, nondistended. EXTREMITIES: No edema or joint tenderness. BACK: Nontender without deformity or crepitance. No flank tenderness. NEURO: AOx3. SKIN: No rash or erythema of visible areas Initial Vital Signs Initial Vital Signs: Vital Signs Temperature 98.6 F 01/10/25 09:39 Pulse Rate 119 H 01/10/25 09:39 Respiratory Rate 20 01/10/25 09:39 Blood Pressure 165/96 H 01/10/25 09:39 Pulse Oximetry 97 01/10/25 09:39 Oxygen Delivery Method Room Air 01/10/25 09:39 Course Orders Ordered: ED Orders 01/10/25 10:12 EKG-12 Lead Stat 01/10/25 10:19 CT abdomen pelvis w con Stat 01/10/25 10:22 Complete Blood Count AUTO DIFF Stat Comprehensive Metabolic Panel Stat Lipase Stat Magnesium Stat Ondansetron HCl (Ondansetron 4 Mg/2 Ml Inj) 4 mg IV NOW PRN PRN Reason: Nausea And Vomiting Ondansetron HCl (Ondansetron 4 Mg Odt) 4 mg PO NOW PRN PRN Reason: Nausea And Vomiting Discontinued Medications Lactated Ringer's (Lactated Ringers) 1,000 mls @ 1,000 mls/hr IV BOLUS ONE Stop: 01/10/25 11:18 Last Admin: 01/10/25 11:22 Dose: 1,000 mls/hr Documented By: NATTY Potassium Chloride (Potassium Chloride 20 Meq/15 Ml Udc) 40 meq PO NOW ONE Stop: 01/10/25 11:15 Last Admin: 01/10/25 11:23 Dose: 40 meq Documented By: NATTY Vital Signs Vital signs: Vital Signs - 8 hr 01/10/25 09:39 Temperature 98.6 F Pulse Rate 119 H Respiratory Rate 20 Blood Pressure 165/96 H Pulse Oximetry 97 Oxygen Delivery Method Room Air MDM - Nausea/Vomiting/Diarrhea Lab Data 01/10/25 10:22 01/10/25 10:22 Labs: Lab Results 01/10/25 Range/Units 10:22 WBC 6.2 (4.5-11.0) X10^3/uL RBC 4.24 (4.0-5.2) X10^6/uL Hgb 15.5 (12.0-16.0) g/dL Hct 45.2 (36-46) % MCV 106.6 H (80-100) fL MCH 36.6 H (26-34) PG MCHC 34.4 (30-36) % RDW 14.2 (11.6-14.8) % Plt Count 306 (150-400) X10^3/uL Neut % (Auto) 62.2 (50-75) % Lymph % (Auto) 29.7 (25-40) % Gilmer % (Auto) 6.1 (3-14) % Eos % (Auto) 1.4 L (2-4) % Baso % (Auto) 0.6 (0-2) % Neut # (Auto) 3800 (1218-0640) /uL Lymph # (Auto) 1800 (3061-2279) /uL Gilmer # (Auto) 400 (0-900) /uL Eos # (Auto) 100 (0-450) /uL Baso # (Auto) 0 (0-100) /uL Sodium 138 (137-145) mmol/L Potassium 2.9 L (3.4-5.1) mmol/L Chloride 96 L (98-107) mmol/L Carbon Dioxide 24 (22-32) mmol/L BUN 9 (7-17) mg/dL Creatinine 0.47 L (0.52-1.04) mg/dL Estimated GFR > 60 (>60) mL/min BUN/Creatinine Ratio 19.1 (6-22) Glucose 80 (70-99) mg/dL Calcium 8.8 (8.4-10.2) mg/dL Magnesium 1.7 (1.6-2.3) mg/dL Total Bilirubin 0.9 (0.2-1.3) mg/dL AST 160 H (14-36) IU/L ALT 70 H (<35) IU/L Alkaline Phosphatase 131 H (38-126) U/L Total Protein 7.2 (6.3-8.2) g/dL Albumin 4.5 (3.5-5.0) g/dL Globulin 2.7 (1.7-4.1) g/dL Albumin/Globulin Ratio 1.7 (1.0-2.8) Lipase 90 (23-300) U/L Imaging Data CT scan - abdomen/pelvis: Radiologist's Impression: [address] [address] [address] Scan Report Signed Patient: Kena Patino MR#: [id number] : 1970 Acct:[id number] Age/Sex: 54 / F Date of Service: 01/10/25 Loc: ED Accession Number: [id number] Procedure: CT abdomen pelvis w con Ordering Provider: Qamar Wall D.O. PROCEDURE: CT ABDOMEN PELVIS W CON INDICATIONS: abd pain /n/v/constipation TECHNIQUE: After the administration of intravenous contrast, axial sections acquired from the lung bases to the pubic symphysis. Coronal and sagittal reformats were performed. For radiation dose reduction, the following was used: automated exposure control, adjustment of mA and/or kV according to patient size. COMPARISON: None. FINDINGS: Image quality: Diagnostic. Lower Chest: A few pulmonary micro nodules in the lung bases. Small hiatal hernia. ABDOMEN: Liver: No solid mass. Significant steatosis. Gallbladder: No radiopaque gallstones or wall thickening. Biliary ducts: No biliary dilation. Pancreas: No ductal dilation. Spleen: Size is within normal limits. Adrenal Glands: No adrenal nodules. Mild hypertrophy of the left adrenal gland. Kidneys and Ureters: No hydronephrosis. No solid mass. No complex renal cystic lesion which requires follow up. Stomach and Bowel: Long segment ascending colonic wall thickening. Normal appendix. Colonic diverticulosis without evidence of diverticulitis. Peritoneum: No abnormal intraperitoneal fluid. No free air. Ventral Wall: Small umbilical hernia containing fat. Abdominal Nodes: No retroperitoneal or mesenteric adenopathy by size criteria. Vessels: Aorta and inferior vena cava are normal in size. PELVIS: Pelvic Organs: Unremarkable. Bladder: No bladder wall thickening, accounting for underdistention. Pelvic Nodes: No enlarged lymph nodes. Miscellaneous: No inguinal hernias are seen. Bones: No aggressive osseous abnormality. Surgical fusion of L5-S1. IMPRESSION: Colitis of the ascending colon. Pulmonary micronodules. Consider 12 month follow-up if at high risk for developing lung cancer, per Fleischner Society guidelines. Dictated by: Harshad Wagner M.D. on 01/10/2025 at 10:54 Approved by: Harshad Wagner M.D. on 01/10/2025 at 11:00 [facility] Narrative Medical decision making narrative: Vital signs, nurse triage note, medication list, previous ER visits, and all imaging studies reviewed. CT abdomen showed colitis of the ascending colon. Pulmonary micronodule follow up 12 months. WBC 6.2 potassium 2.9 magnesium 1.7 AST 160 ALT 70 alk-phos 131. Patient given fluids and potassium. Patient will go home watchful waiting conservative management at this time clear liquid diet and to keep hydrated. Differential diagnosis small-bowel obstruction, constipation, diverticulitis, pancreatitis, electrolyte derangement. Discharge Plan Departure Patient Disposition: Home Clinical Impression: Colitis Instructions: DI for Colitis Activity Restrictions/Additional Instructions: Return with new or worsening symptoms. Keep hydrated. Clear liquid diet advance as tolerated. Follow up PCP next week if no improvement in symptoms. Prescriptions: No Action budesonide 1 mg/2 mL suspension for nebulization 1 mg INHALATION BID Qty: 120 2RF ipratropium-albuterol 0.5 mg-3 mg(2.5 mg base)/3 mL solution for nebulization 3 ml INHALATION Q6H PRN (Reason: shortness of breath) Qty: 360 2RF albuterol sulfate 90 mcg/actuation HFA aerosol inhaler 2 puff inhalation Q4-6H PRN (Reason: for dyspnea) Qty: 17 3RF anastrozole 1 mg tablet 1 mg PO QAM lisinopril 40 mg tablet 40 mg PO DAILY Qty: 90 1RF amlodipine 10 mg tablet See Rx Instructions .ROUTE .COMPLEX Qty: 90 1RF Dose Instruction: take 1 tablet by mouth daily Rx Instructions: take 1 tablet by mouth daily acetaminophen [Tylenol] 325 mg capsule 650 mg PO QID PRN (Reason: pain) Qty: 60 0RF Referrals: Carrie Wilcox DO [Primary Care Provider, Medical] Stand Alone Forms: Patient Portal/API
--- NOTE | 2025-01-10 10:19 | DI.CT.S_ITS ---
PROCEDURE: CT ABDOMEN PELVIS W CON INDICATIONS: abd pain /n/v/constipation TECHNIQUE: After the administration of intravenous contrast, axial sections acquired from the lung bases to the pubic symphysis. Coronal and sagittal reformats were performed. For radiation dose reduction, the following was used: automated exposure control, adjustment of mA and/or kV according to patient size. COMPARISON: None. FINDINGS: Image quality: Diagnostic. Lower Chest: A few pulmonary micro nodules in the lung bases. Small hiatal hernia. ABDOMEN: Liver: No solid mass. Significant steatosis. Gallbladder: No radiopaque gallstones or wall thickening. Biliary ducts: No biliary dilation. Pancreas: No ductal dilation. Spleen: Size is within normal limits. Adrenal Glands: No adrenal nodules. Mild hypertrophy of the left adrenal gland. Kidneys and Ureters: No hydronephrosis. No solid mass. No complex renal cystic lesion which requires follow up. Stomach and Bowel: Long segment ascending colonic wall thickening. Normal appendix. Colonic diverticulosis without evidence of diverticulitis. Peritoneum: No abnormal intraperitoneal fluid. No free air. Ventral Wall: Small umbilical hernia containing fat. Abdominal Nodes: No retroperitoneal or mesenteric adenopathy by size criteria. Vessels: Aorta and inferior vena cava are normal in size. PELVIS: Pelvic Organs: Unremarkable. Bladder: No bladder wall thickening, accounting for underdistention. Pelvic Nodes: No enlarged lymph nodes. Miscellaneous: No inguinal hernias are seen. Bones: No aggressive osseous abnormality. Surgical fusion of L5-S1. IMPRESSION: Colitis of the ascending colon. Pulmonary micronodules. Consider 12 month follow-up if at high risk for developing lung cancer, per Fleischner Society guidelines. Dictated by: Harshad Wagner M.D. on 01/10/2025 at 10:54 Approved by: Harshad Wagner M.D. on 01/10/2025 at 11:00
[2025-01-10 10:31] LABS: Add Manual Diff / Slide Review NO; Hematocrit 45.2 % (36-46); Hemoglobin 15.5 g/dL (12.0-16.0); Lymphocytes Absolute Auto 1800 /uL (1100-4500); Mean Corpuscular HGB Conc 34.4 % (30-36); Mean Corpuscular Hemoglobin 36.6 PG (26-34); Mean Corpuscular Volume 106.6 fL (80-100); Platelet Count 306 X10^3/uL (150-400)
[2025-01-10 10:43] LABS: Alanine Aminotransferase 70 IU/L (<35); Albumin 4.5 g/dL (3.5-5.0); Albumin Globulin Ratio 1.7 (1.0-2.8); Alkaline Phosphatase 131 U/L (38-126); Blood Urea Nitrogen 9 mg/dL (7-17); Calcium 8.8 mg/dL (8.4-10.2); Carbon Dioxide 24 mmol/L (22-32); Chloride 96 mmol/L (98-107); Estimated Glomerular Filt Rate > 60 mL/min (>60); Globulin 2.7 g/dL (1.7-4.1); Glucose 80 mg/dL (70-99); HEMOLYSIS < 15 (0-50); Lipase 90 U/L (23-300); Potassium 2.9 mmol/L (3.4-5.1); Sodium 138 mmol/L (137-145); Total Protein 7.2 g/dL (6.3-8.2)
[2025-01-10 11:22] LABS: Magnesium 1.7 mg/dL (1.6-2.3)
[2025-01-10] MEDS: LACTATED RINGERS 1,000 ML 1000 ML IV (11:22)
[2025-01-10] MEDS: POTASSIUM CHLORIDE 20 MEQ/15 ML UDC 40 MEQ PO (11:23)
[2025-01-10 13:11] LABS: Culture Indicated Urine Cult Not Indicated
--- NOTE | 2025-01-10 13:23 | PC.NURSE ---
IV placed by another nurse
== END 2025-01-10 13:26 | disposition home or self-care (01) ==
PROVIDERS: Emergency Provider Family Medicine; PCP Family Medicine
DX: K52.9 Noninfective gastroenteritis and colitis, unspecified (principal); F17.210 Nicotine dependence, cigarettes, uncomplicated
CPT/HCPCS: 74177; 80053; 81003; 81015; 83690; 83735; 85025; 96360; 96361; 99284; Q9967